=== PATIENT | female | born 1965 | race Caucasian/White ===

== ENCOUNTER → 2017-04-24 | Outpatient (CLI) | payer OTHER ==
--- NOTE | 2017-04-24 12:22 | REP ---
TWO-VIEW CHEST: REASON: Bronchitis. COMPARISON: None. FINDINGS: The superior mediastinal structures are midline. The cardiac silhouette is unremarkable in size, shape, and position. The diaphragmatic surfaces of the lungs are regular, and the costophrenic angles are clear. The pulmonary thompson are clear. The imaged osseous structures are intact. IMPRESSION: There is no acute cardiopulmonary disease. Signed by Brandyn English DO 04/24/2017 01:42 P
== END ==
LOC: M WUC 09:26
PROVIDERS: ATTEND Physician Assistant
DX: J20.9 Acute bronchitis, unspecified (principal)

== ENCOUNTER → 2018-03-31 | Outpatient (REF) | payer OTHER | LOC: M LAB REF 10:11 | DX: N39.0 Urinary tract infection, site not specified (principal) ==

== ENCOUNTER → 2019-01-19 | Outpatient (REF) | payer OTHER | LOC: M LAB REF 19:20 | PROVIDERS: ATTEND Physician Assistant | DX: N39.0 Urinary tract infection, site not specified (principal) ==

== ENCOUNTER → 2019-04-07 | Outpatient (CLI) | payer OTHER ==
[2019-04-07 13:24] LABS: BASO # 0.1 10^3/uL (0.0-0.2); EOS # 0.1 10^3/uL (0.0-0.50); EOS % 1.6 % (0.0-3.0); HEMOGLOBIN 13.7 g/dl (12.0-15.5); LYMPH # 2.2 10^3/uL (1.5-4.5); LYMPH % 32.9 % (24.0-44.0); MEAN CORPUSCULAR HEMOGLOBIN 28.8 pg (27.0-33.0); MEAN CORPUSCULAR HGB CONC 32.6 g/dl (32.0-36.5); MEAN CORPUSCULAR VOLUME 88.4 fl (80.0-96.0); MONO # 0.6 10^3/uL (0.0-0.8); MONO % 9.1 % (0.0-5.0); NEUTROPHILS # 3.7 10^3/uL (1.8-7.7); NEUTROPHILS % 55.1 % (36.0-66.0); PLATELET COUNT, AUTOMATED 202 10^3/uL (150-450); RED BLOOD COUNT 4.75 10^6/uL (4.00-5.40); WHITE BLOOD COUNT 6.8 10^3/uL (4.0-10.0)
[2019-04-07 13:34] LABS: ALBUMIN 3.8 GM/DL (3.2-5.2); ALT/SGPT 22 U/L (12-78); BILIRUBIN,TOTAL 0.4 MG/DL (0.2-1.0); BLOOD UREA NITROGEN 17 MG/DL (7-18); CALCIUM LEVEL 9.6 MG/DL (8.5-10.1); CARBON DIOXIDE LEVEL 30 MEQ/L (21-32); CHLORIDE LEVEL 106 MEQ/L (98-107); CREATININE FOR GFR 0.82 MG/DL (0.55-1.30); GLOMERULAR FILTRATION RATE > 60.0 (>51); GLUCOSE, FASTING 88 MG/DL (70-100); SODIUM LEVEL 141 MEQ/L (136-145); TOTAL PROTEIN 6.8 GM/DL (6.4-8.2)
[2019-04-09 00:06] LABS: EBV AB TO NUCLEAR ANTIGEN >600.0 U/mL (0.0-17.9); EBV VIRAL CAPSID AG IgM <36.0 U/mL (0.0-35.9)
== END ==
LOC: M WUC 09:05
PROVIDERS: ATTEND Physician Assistant
DX: B00.2 Herpesviral gingivostomatitis and pharyngotonsillitis (principal)

== ENCOUNTER 2019-05-08 13:50 | Emergency (ER) | payer OTHER ==
[~2019-05-08] VITALS: Ht 154.9 cm; Wt 51.4 kg
[2019-05-08] MEDS ORDERED: NS 1,000 ML IV ONE (14:30)
[2019-05-08 14:44] LABS: BASO # 0.1 10^3/uL (0.0-0.2); BASO % 1.2 % (0.0-1.0); EOS # 0.1 10^3/uL (0.0-0.50); EOS % 2.1 % (0.0-3.0); HEMATOCRIT 42.2 % (36.0-47.0); HEMOGLOBIN 14.2 g/dl (12.0-15.5); LYMPH # 2.5 10^3/uL (1.5-4.5); LYMPH % 37.9 % (24.0-44.0); MEAN CORPUSCULAR HEMOGLOBIN 29.4 pg (27.0-33.0); MEAN CORPUSCULAR HGB CONC 33.6 g/dl (32.0-36.5); MEAN CORPUSCULAR VOLUME 87.4 fl (80.0-96.0); MONO # 0.6 10^3/uL (0.0-0.8); MONO % 9.3 % (0.0-5.0); NEUTROPHILS # 3.3 10^3/uL (1.8-7.7); NEUTROPHILS % 49.2 % (36.0-66.0); PLATELET COUNT, AUTOMATED 269 10^3/uL (150-450); RED BLOOD COUNT 4.83 10^6/uL (4.00-5.40); WHITE BLOOD COUNT 6.7 10^3/uL (4.0-10.0)
[2019-05-08] MEDS ORDERED: KETOROLAC 30 MG/ML VIAL (J1885) IV ONE (14:45)
[2019-05-08] MEDS ORDERED: ISOVUE-370 76% 100ML VIAL (Q9967) As Ordered ONE (14:51)
[2019-05-08 15:09] LABS: ALBUMIN 4.2 GM/DL (3.2-5.2); ALT/SGPT 19 U/L (12-78); BILIRUBIN,DIRECT < 0.1 MG/DL (0.0-0.2); BILIRUBIN,TOTAL 0.3 MG/DL (0.2-1.0); LIPASE 163 U/L (73-393); TOTAL PROTEIN 7.6 GM/DL (6.4-8.2)
--- NOTE | 2019-05-08 15:22 | REP ---
Clinical: Right lower quadrant pain. Technique: Axial contrast enhanced images from the lung bases to the pubic symphysis using 100 ml Isovue 370 intravenous contrast material with coronal and sagittal re-formations. Comparison: 06/18/2005 Findings: Lung bases are clear. Liver, spleen, pancreas, gallbladder, bilateral adrenal glands and kidneys are normal. The enteric system demonstrates mild fecal stasis without obstruction or obvious acute inflammatory process. Crowding in the right lower quadrant limits evaluation of the appendix, but no secondary signs of appendicitis are appreciated. No inflammatory stranding. No right lower quadrant fluid. Evaluation of the pelvis demonstrates normal bladder and evidence for prior hysterectomy. No ascites. No free air. No adenopathy. Abdominal aorta without aneurysm or dissection. Musculoskeletal structures demonstrate degenerative changes without focal osseous abnormality. Impression: Mild fecal stasis. No further acute abdominopelvic pathology appreciated. No ascites, focal inflammatory stranding, or adenopathy. Electronically Signed by Mason Cheung MD 05/08/2019 03:14 P
[2019-05-08] MEDS ORDERED: GI COCKTAIL 50ML BTL(HYOSCYAMINE/MAALOX/LIDOCAINE VISCOUS)(1:3:1) PO ONE (16:00)
[2019-05-08] MEDS ORDERED: MORPHINE 4 MG/ML 1ML VIAL/SYRINGE (J2270) IV ONE (16:30)
[2019-05-08] MEDS ORDERED: ONDANSETRON 4MG/2ML VIAL (J2405) IV ONE (16:30)
--- NOTE | 2019-05-08 16:37 | REP ---
Clinical: Nephrolithiasis. Flank pain. Technique: Real time mosley scale ultrasound examination using curved array transducer. Findings: Bilateral kidneys are normal in contour, size, echogenicity, and reniform shape without hydronephrosis, nephrolithiasis, cystic or renal mass lesion. No perinephric fluid collection. Right kidney measures 9.3 x 3.5 x 3.5 cm. Left kidney measures 10.4 x 4.7 x 6.0 cm. Bladder is normal. Impression: Normal renal ultrasound. No hydronephrosis. No nephrolithiasis. Electronically Signed by Mason Cheung MD 05/08/2019 04:28 P
[2019-05-08 17:12] LABS: CK-MB VALUE MASS 2.2 NG/ML (<3.6); CPK CREATINE PHOSPHOKINASE 120 U/L (26-192); MB/CK RELATIVE INDEX 1.83 (< OR =4); TROPONIN I < 0.02 NG/ML (< 0.10)
[2019-05-08] MEDS ORDERED: PRIL20TA2 PO (17:24)
[2019-05-08 18:01] VITALS: BP 157/71
--- NOTE | 2019-05-09 16:38 | ECGEPIP ---
[facility] [place] - ED Test Date: 2019-05-08 Pat Name: ANGEL RG Department: Room: - Gender: Female Database Technician: reji : 1965 Requested By: LAKEISHA Carroll PA-C Order Number: [id number] Reading MD: Jose Elias Sutton Measurements Intervals [place] Rate: 72 P: 56 AL: 128 QRS: 67 QRSD: 94 T: 58 QT: 362 QTc: 397 Interpretive Statements SINUS RHYTHM INCOMPLETE RIGHT BUNDLE BRANCH BLOCK Comparison tracing not on file Electronically Signed on 05-09-2019 16:38:30 EDT by Jose Elias Sutton
== END 2019-05-08 17:30 | disposition home or self-care (01) ==
LOC: M ED 14:55
DX: R31.9 Hematuria, unspecified (principal); R10.84 Generalized abdominal pain; I45.19 Other right bundle-branch block; E28.2 Polycystic ovarian syndrome; N80.9 Endometriosis, unspecified; Z87.440 Personal history of urinary (tract) infections; T88.3XXA Malignant hyperthermia due to anesthesia, initial encounter; Z72.0 Tobacco use; Z88.0 Allergy status to penicillin; Z88.2 Allergy status to sulfonamides
CPT/HCPCS: 74177; 76775; 80047; 80076; 81001; 82550; 82553; 83605; 83690; 84484; 85025; 93005; 96374; 96375; 99284; J1885; J2270; J2405; Q9967

== ENCOUNTER → 2019-05-15 | Outpatient (CLI) | payer OTHER ==
[~2019-05-15] MED LIST: ACET-897 PO; ALEV220T22 PO; BACITAB PO; CLEO150C PO; CLIN150C14 PO; ESTR1TAB PO; MOXI400T11 PO; NAPR250T4 PO; PERI0.126 MT; PERI0.126 PO; PRIL20TA2 PO; TRAM50TA2 PO
--- NOTE | 2019-05-15 12:30 | REP ---
T-spine series: Three views. History: Muscle strain. Findings: Thoracic vertebral body heights are preserved. Alignment is normal. There is minimal discogenic spurring in the mid thoracic levels. Pedicles and posterior elements are intact. No paravertebral soft-tissue mass is seen. No fracture or collapse noted. There is a minimal upper thoracic levoconvex curve. Impression: No acute bony abnormality. Electronically Signed by Darrell Leavitt MD 05/15/2019 12:21 P
--- NOTE | 2019-05-15 12:34 | REP ---
Abdominal series: Three views. History: Muscle strain. Comparison study: April 24, 2017. Findings: Upright chest radiograph is unremarkable. There is no evidence of infiltrate or free subdiaphragmatic air. Supine and erect views of the abdomen demonstrate a normal bowel gas pattern. There is no evidence of free air, obstruction, mass or pathologic calcification. There are phleboliths in the true pelvis. No significant bony abnormality is seen. Impression: Unremarkable abdominal series. Electronically Signed by Darrell Leavitt MD 05/15/2019 02:36 P
[2019-05-15 18:31] LABS: C REACTIVE PROTEIN QUANTITATIV < 0.30 MG/DL (0.00-0.30)
[2019-05-17 14:07] LABS: ANTINUCLEAR ANTIBODIES DIRECT Negative (Negative); TISSUE TRANSGLUTAMINASE IgA <2 U/mL (0-3)
== END ==
LOC: M WUC 11:59
PROVIDERS: ATTEND Physician Assistant
DX: R10.84 Generalized abdominal pain (principal); S29.012A Strain of muscle and tendon of back wall of thorax, initial encounter; X58.XXXA Exposure to other specified factors, initial encounter; Y92.89 Other specified places as the place of occurrence of the external cause

== ENCOUNTER 2019-06-14 05:51 | Day surgery (SDC) | payer OTHER ==
[~2019-06-14] VITALS: Ht 154.9 cm; Wt 49.0 kg
[~2019-06-14 05:51] MED LIST changes: -ACET-897 PO; -ALEV220T22 PO; -BACITAB PO; -CLEO150C PO; -CLIN150C14 PO; -MOXI400T11 PO; -PERI0.126 MT; -PERI0.126 PO; -TRAM50TA2 PO
[2019-06-14] MEDS ORDERED: LevoFLOXacin IV 500 MG in APPROPRIATE DILUENT 1 EA IV ONE (06:00)
[2019-06-14] MEDS ORDERED: LR 1,000 ML IV ONE (06:00)
[2019-06-14] MEDS ORDERED: GLUCAGON FOR INJ 1 MG VIAL (J1610) As Ordered ONE (06:52)
[2019-06-14] MEDS ORDERED: BUPIVACAINE/EPIN 0.25% 30 ML VIAL As Ordered ONE (06:52)
[2019-06-14] MEDS ORDERED: CONRAY-60 60% 50ML VIAL (Q9961) As Ordered ONE (06:52)
[2019-06-14] MEDS ORDERED: fentaNYL 250 MCG/5 ML INJECTION (J3010) As Ordered ONE (07:07)
[2019-06-14] MEDS ORDERED: PROPOFOL 500 MG/50 ML VIAL As Ordered ONE (07:07)
[2019-06-14] MEDS ORDERED: MIDAZOLAM INJ 2 MG/2 ML VIAL (J2250) As Ordered ONE (07:07)
[2019-06-14] MEDS ORDERED: PROPOFOL 200 MG/20 ML VIAL As Ordered ONE (07:13)
[2019-06-14] MEDS ORDERED: dexameTHASONE 4 MG/ML 1ML VIAL (J1100) As Ordered ONE (07:13)
[2019-06-14] MEDS ORDERED: ONDANSETRON 4MG/2ML VIAL (J2405) As Ordered ONE (07:13)
[2019-06-14] MEDS ORDERED: LIDOCAINE 2% INJ 100 MG/5 ML SDV (FOR ANES.) As Ordered ONE (07:13)
[2019-06-14] MEDS ORDERED: ROCURONIUM BROMIDE 50 MG/5 ML VIAL As Ordered ONE (07:16)
[2019-06-14] MEDS ORDERED: SUGAMMADEX SODIUM 500 MG/5 ML VIAL (BRIDION) As Ordered ONE (08:05)
[2019-06-14] MEDS ORDERED: ePHEDrine SULFATE 25 MG/5 ML(5MG/ML) SYRINGE As Ordered ONE (08:05)
[2019-06-14] MEDS ORDERED: ACETAMINOPHEN 1000MG 100ML IV BTL (OFIRMEV) (J0131 PER 10MG) As Ordered ONE (08:06)
[2019-06-14] MEDS ORDERED: KETOROLAC 60 MG/2 ML VIAL (J1885) As Ordered ONE (08:06)
--- NOTE | 2019-06-14 08:47 | RO ---
DATE OF PROCEDURE: 06/14/2019 PREOPERATIVE DIAGNOSIS: Acute cholecystitis. POSTOPERATIVE DIAGNOSIS: Acute cholecystitis. PROCEDURE: Laparoscopic cholecystectomy. SURGEON: Barry Delvalle Jr., MD MACHINE CEMENTER: ANESTHESIA: General endotracheal anesthesia. ESTIMATED BLOOD LOSS: Minimal. BRIEF PROCEDURE SUMMARY: The patient was brought to the operating room, was given general anesthesia. After adequate anesthesia and preoperative antibiotics were given the patient was prepped and draped in the usual sterile fashion. Next, a supraumbilical incision was made with skin knife. Blunt dissection was carried down to fascia. Fascia was entered with a Veress needle, insufflated to 15 mm of pressure. A dilating 10 mm trocar was placed at this time and under direct visualization an epigastric and two lateral trocars were placed. The gallbladder was seen, grasped and retracted superiorly. Numerous adhesions of the gallbladder to the omentum as well as to the duodenum were taken down with hook cautery and then the neck of the gallbladder was cleared of the peritoneum using the hook cautery laterally as well as medially. the cystic artery was well visualized, clipped proximally and distally, and transected. The cystic duct was well visualized as well, tapered nicely from the neck the gallbladder down to the cystic duct and was clipped at the junction of the neck of the gallbladder cystic duct junction. The common bile duct could be seen medial. Next, the gallbladder was taken from the gallbladder bed using electrocautery, placed in EndoCatch bag and brought out through the umbilicus. The right upper quadrant was copiously irrigated until clear and all trocars removed under direct visualization. #0 Vicryl was used close fascia at the umbilicus and all incisions were closed with #4-0 Vicryl. Steri-Strips and a dry sterile dressing was applied. The patient was awakened, extubated, brought to the recovery room awake, alert and hemodynamically stable. Sponge and needle counts were correct times two.
[2019-06-14] MEDS ORDERED: ONDANSETRON 4MG/2ML VIAL (J2405) IV PRN (09:15)
[2019-06-14] MEDS ORDERED: fentaNYL 100 MCG/2 ML INJECTION (J3010) IV PRN (09:15)
[2019-06-14] MEDS ORDERED: HYDROMORPHONE HCL 0.5 MG/ 0.5 ML SYRINGE (J1170 PER 1) IV PRN (09:15)
[2019-06-14] MEDS ORDERED: LR 1,000 ML IV SCH ×2 (09:15→10:16)
[2019-06-14] MEDS ORDERED: PROMETHAZINE INJ 25 MG/ML VIAL (J2550) IV PRN (09:15)
[2019-06-14] MEDS ORDERED: traMADol 50 MG TAB PO PRN (09:30)
[2019-06-14 10:00] VITALS: BP 116/56
== END 2019-06-14 10:20 | disposition home or self-care (01) ==
LOC: M SDC 05:51
PROVIDERS: ATTEND Surgery
DX: K81.9 Cholecystitis, unspecified (principal); K21.9 Gastro-esophageal reflux disease without esophagitis; F17.210 Nicotine dependence, cigarettes, uncomplicated; Z79.899 Other long term (current) drug therapy; Z88.2 Allergy status to sulfonamides; Z88.0 Allergy status to penicillin; Z88.8 Allergy status to other drugs, medicaments and biological substances
CPT/HCPCS: 47562; 88304; J0131; J1100; J1885; J1956; J2250; J2405; J3010

== ENCOUNTER 2019-08-13 09:53 | Inpatient (IN) | payer OTHER ==
[2019-08-13] VITALS (7 sets, daily range): BP systolic 97–145; BP diastolic 53–82
[~2019-08-13] VITALS: Ht 154.9 cm; Wt 48.6 kg
[2019-08-13] MEDS ORDERED: TRAM50TA2 PO (10:22)
[2019-08-13 10:58] LABS: BASO # 0.1 10^3/uL (0.0-0.2); BASO % 0.4 % (0.0-1.0); EOS # 0.1 10^3/uL (0.0-0.5); EOS % 0.7 % (0.0-3.0); HEMATOCRIT 40.2 % (36.0-47.0); HEMOGLOBIN 13.3 g/dl (12.0-15.5); LYMPH # 1.9 10^3/uL (1.5-5.0); LYMPH % 13.9 % (24.0-44.0); MEAN CORPUSCULAR HEMOGLOBIN 28.8 pg (27.0-33.0); MEAN CORPUSCULAR HGB CONC 33.1 g/dl (32.0-36.5); MONO # 1.1 10^3/uL (0.0-0.8); MONO % 8.4 % (0.0-5.0); NEUTROPHILS # 10.3 10^3/uL (1.5-8.5); NEUTROPHILS % 76.2 % (36.0-66.0); PLATELET COUNT, AUTOMATED 252 10^3/uL (150-450); RED BLOOD COUNT 4.62 10^6/uL (4.00-5.40); WHITE BLOOD COUNT 13.5 10^3/uL (4.0-10.0)
[2019-08-13 11:18] LABS: ERYTHROCYTE SEDIMENTATION RATE 25 mm/hr (0-30)
[2019-08-13 11:20] LABS: BLOOD UREA NITROGEN 9 MG/DL (7-18); C REACTIVE PROTEIN QUANTITATIV 8.25 MG/DL (0.00-0.30); CALCIUM LEVEL 9.1 MG/DL (8.5-10.1); CARBON DIOXIDE LEVEL 27 MEQ/L (21-32); CHLORIDE LEVEL 104 MEQ/L (98-107); CREATININE FOR GFR 0.74 MG/DL (0.55-1.30); GLOMERULAR FILTRATION RATE > 60.0 (>51); GLUCOSE, FASTING 93 MG/DL (70-100); POTASSIUM SERUM 3.9 MEQ/L (3.5-5.1); SODIUM LEVEL 137 MEQ/L (136-145)
[2019-08-13] MEDS ORDERED: KETOROLAC 30 MG/ML VIAL (J1885) IV ONE (11:30)
[2019-08-13] MEDS ORDERED: ISOVUE-370 76% 100ML VIAL (Q9967) As Ordered ONE (11:32)
--- NOTE | 2019-08-13 12:08 | REPVR ---
PROCEDURE INFORMATION: Exam: CT Neck With Contrast Exam date and time: 08/13/2019 11:33 AM Clinical history: 54 years old, female; Other: L neck erythema, edema; Additional info: L neck erythema, edema, ttp TECHNIQUE: Imaging protocol: Computed tomography images of the neck with intravenous contrast. Radiation optimization: All CT scans at this facility use at least one of these dose optimization techniques: automated exposure control; mA and/or kV adjustment per patient size (includes targeted exams where dose is matched to clinical indication); or iterative reconstruction. Contrast material: ISOVUE 370; Contrast volume: 75 ml; Contrast route: IV; COMPARISON: No relevant prior studies available. FINDINGS: Inflammatory change in the left submandibular region and superior neck, with cellulitis centered along the inferior aspect of the mandibular body with adjacent myositis causing thickening of the platysma, and a 2.7 x 1.6 x 1.9 cm fluid collection with mild peripheral enhancement along the inferior and medial aspect of the left mandibular body, superficial to the mylohyoid, immediately abutting the enlarged, inflamed submandibular gland. This likely superior extension of inflammation within the pit furnace operator space, with mild pit furnace operator muscular edema, and mild inflammation within the left parapharyngeal fat. No retropharyngeal or prevertebral effusion. There is a periapical erosion around the roots of the left posterior mandibular molar, with thinning of the inner table of the mandibular cortex. The imaged brain and orbits are unremarkable. The nasal cavity, nasopharynx, oral cavity, oropharynx, hypopharynx, and larynx are otherwise unremarkable. The major cervical vasculature appears patent. Mild emphysema in the imaged upper lungs, with apical scarring. No destructive osseous lesions. IMPRESSION: Left submandibular region inflammation with cellulitis, myositis, and a large area of phlegmon/early abscess formation along the inferior aspect of the mandibular body with adjacent submandibular sialadenitis. This is likely odontogenic in origin, with a periapical erosion about the roots of the left posterior mandibular molar eroding through the mandibular cortex. Electronically signed by: Sanjeev Cordova On 08/13/2019 12:08:11 PM
[2019-08-13] MEDS ORDERED: NS 1,000 ML IV STA (13:10)
[2019-08-13] MEDS ORDERED: ESTR1TAB PO (13:23)
[2019-08-13] MEDS ORDERED: ACET-897 PO (13:23)
[2019-08-13] MEDS ORDERED: ALEV220T22 PO (13:23)
[2019-08-13] MEDS ORDERED: CLINDAMYCIN 600 MG in IV 1 EA IV ONE (13:30)
[2019-08-13] MEDS ORDERED: MORPHINE 4 MG/ML 1ML VIAL/SYRINGE (J2270) IV PRN (14:15)
[2019-08-13] MEDS ORDERED: MAALOX 30 ML SUSP *UDC PO PRN (14:30)
[2019-08-13] MEDS ORDERED: NICOTINE 14 MG/24 HR TRANSDERMAL TD ONE (14:30)
[2019-08-13] MEDS ORDERED: MOM 30ML SUSPENSION UDC PO PRN (14:30)
[2019-08-13] MEDS ORDERED: ESTRADIOL 1 MG TAB PO PRN (15:00)
--- NOTE | 2019-08-13 15:01 | HPEPDOC ---
[facility] Medical History & Physical Date of Admission Aug 13, 2019 Date of Service: Aug 13, 2019 Primary Care Physician: GAL CASTELLON DO Attending Physician: MOR FORD MD History and Physical CHIEF COMPLAINT: Left jaw pain HISTORY OF PRESENT ILLNESS: Patient is a 54-year-old white female with a benign past medical history, who presented to emergency department on 08/13/19 with a chief complaint of left lower jaw pain. Patient states that her pain began approximately 1 week ago after feeling in her left posterior molar became loose. Patient states that her pain continued to persist over the coming days and ultimately led to her to present to urgent care on 08/11/19. While at urgent care, patient was diagnosed with a perioral infection and given by mouth clindamycin 200 mg 3 times a day. Patient states that despite oral antibiotic therapy, her pain and discomfort continued to persist. The night prior to presentation, 08/12/19, patient reported experiencing elevated temperature and rigors. Given this, and increasing discomfort, patient presented to the emergency department for further evaluation and management. Upon presentation to the emergency department, patient was found to be afebrile and only slightly hypertensive with blood pressure of 146/64. Pulse of 84, respiratory rate of 16 and oxygen saturation 100% on room air. CBC investigation demonstrated a slight leukocytosis of 13.5, predominantly neutrophils. Chemistry panel revealed normal electrolytes and normal kidney function. CRP slightly elevated at 8.25. CT imaging of the patient's neck with IV contrast which revealed left submandibular inflammation with cellulitis and myositis and a large area of early abscess formation. In light of this finding, ENT was contacted with emergency department was agreeable to see the patient in the hospital. Hospitalist team was contacted to admit the patient for further evaluation and management. PAST MEDICAL HISTORY: No significant past medical history PAST SURGICAL HISTORY: D&C, 3 Hysterectomy Right elbow repair Cholecystectomy SOCIAL HISTORY: Marital status: Single Resides in: Own home with her boyfriend, her son, her boyfriend side and a pet dog. Children:1 son Tobacco use: Patient smokes approximately 1/2-2/3 packs of cigarettes per day. She's been doing so since she was in her late teens. ETOH: Patient denies any recent alcohol use or intoxication. Illicit drug use: Patient denies any illicit drug use including marijuana. IV drug use: Patient denies any IV drug use. Other relevant social factors: Patient does have an identical twin sister with whom she is very close. FAMILY HISTORY: Father: Alive, 81 years old, hypertension Mother: Alive, no medical problems Siblings: Identical twin sister, alive Children: Healthy, no medical problems ALLERGIES: Please see below. REVIEW OF SYSTEMS: CONSTITUTIONAL: Patient reports feeling feverish last evening with associated rigors. She states that her temperature was 99.5. F. chose reports difficulty sleeping secondary to pain and discomfort. No recent weight loss. HEENT: Day history of headache, states that her left ear does feel full, no loss of hearing or tinnitus. Patient also reports increased rhinorrhea and sinus pressure particularly on the left maxillary area. She does have difficulty opening her mouth beyond one fingers breath due to pain and pressure. CARDIOVASCULAR: Patient denies any chest pain or pressure RESPIRATORY: Patient denies any recent respiratory illnesses. No difficulty breathing, no recent wheezing or cough. GASTROINTESTINAL: Denies any nausea, vomiting, reflux, abdominal pain, diarrhea or constipation GENITOURINARY: Denies any difficulty with urination including dysuria or frequency. SKIN: Reports left-sided mandibular skin tightness, no recent rashes or bruising. MUSCULOSKELETAL: Patient denies any muscle or joint aches or pains. NEUROLOGICAL: Patient denies any focal neurologic deficits, no numbness tingling or paresthesias in her arms/feet her extremities. HOME MEDICATIONS: Please see below. PHYSICAL EXAMINATION: VITAL SIGNS: Temperature 96.4, pulse 84, respiratory rate 16, blood pressure 146/64 (91), pulse oximetry 100 % on room air. GENERAL APPEARANCE: Patient was interviewed and examined in immediate care. Patient was found to be seated comfortably on her hospital bed. Patient's identical twin sister and mother were at bedside. Patient was alert and oriented in no acute distress. She was able to answer questions appropriately and adequately participate in her care. HEENT: Calvarium atraumatic. Patient does demonstrate moderate amount of submandibular swelling on the left. Tenderness to palpation along the mandibular ramus and angle. Mild tenderness in the left neck. No appreciable lymphadenopathy. Limited examination of the oral cavity does demonstrate fract ured tooth #17. Undiscernible swelling or surrounding erythema. No obvious ulcerations. Mucous membranes are moist. CARDIOVASCULAR: Regular rate and rhythm, normal S1 and S2. No murmurs appreciated LUNGS: Clear to auscultation bilaterally without any noticeable wheezing rales or rhonchi. Regular anterior posterior lung thompson. ABDOMEN: Soft, nontender, nondistended, no rigidity or guarding. No palpable masses or organomegaly. EXTREMITIES: No lower extremity edema/swelling, tenderness bilaterally NEUROLOGICAL: No focal neurologic deficit. Alert and oriented to person place and time PSYCHIATRIC: Mood and affect are appropriate given patient's current medical condition LABORATORY DATA: See below. IMAGING: Head and neck CT (08/13/19): Left submandibular region inflammation with cellulitis, myositis and large area of phlegmon/early abscess formation along the inferior aspect of the mandibular body with adjacent submandibular sialadenitis. This is likely odontogenic in origin with periapical erosion about the roots of the left posterior mandibular molar eroding through the mandibular cortex. MICROBIOLOGY: Venous blood cultures (08/13/19): Pending ASSESSMENT: Patient is a 54-year-old female with a benign past medical history, who presented to the emergency department on 08/13/19 with a chief complaint of left submandibular pain and swelling. Patient appears sick been treated at an urgent care on 08/11/19, diagnosed with perioral infection and given clindamycin 300 mg by mouth 3 times daily. Patient reports that her pain and swelling continued to persist and ultimately led to her hospital presentation. CT imaging of the patient's jaw to demonstrate cellulitis, myositis and early abscess formation submandibular area. Oral surgery was consulted and agreed to see the patient further evaluation and management. Patient admitted to the floor and continued on IV clindamycin. PLAN: #Submandibular cellulitis/abscess Physical exam demonstrates moderate amount of submandibular swelling along the inferior aspect of the mandibular ramus. CT imaging of the area indicates possibility of early abscess formation. CBC performed in the emergency department is positive for slight leukocytosis of 13.5, predominantly neutrophils. Patient remains afebrile and her vitals are stable. Systemic infection not clinically evident. Patient does have quite extensive list of antibiotic allergies. She denies any difficulty taking oral clindamycin the last few days. Continue patient on IV clindamycin 600 mg every 8 hours. Oral surgery has been consulted and we appreciate their assistance with managing this patient. Continued IV antibiotics versus surgical drainage per their discretion. #Nicotine dependence Nicotine patch be provided in addition to smoke cessation material. DVT prophylaxis: Subcutaneous Lovenox 40 mg daily. Vital Signs Vital Signs Date Time Temp Pulse Resp B/P (MAP) Pulse Ox O2 Delivery O2 Flow Rate FiO2 08/13/19 10:18 08/13/19 09:54 96.4 84 16 100 Room Air Laboratory Data Labs 24H Laboratory Tests 2 08/13/19 10:15: Immature Granulocyte % (Auto) 0.4, White Blood Count 13.5H, Red Blood Count 4.62, Hemoglobin 13.3, Hematocrit 40.2, Mean Corpuscular Volume 87.0, Mean Corpuscular Hemoglobin 28.8, Mean Corpuscular Hemoglobin Concent 33.1, Red Cell Distribution Width 13.8, Platelet Count 252, Neutrophils (%) (Auto) 76.2H, Lymphocytes (%) (Auto) 13.9L, Monocytes (%) (Auto) 8.4H, Eosinophils (%) (Auto) 0.7, Basophils (%) (Auto) 0.4, Neutrophils # (Auto) 10.3H, Lymphocytes # (Auto) 1.9, Monocytes # (Auto) 1.1H, Eosinophils # (Auto) 0.1, Basophils # (Auto) 0.1, Nucleated Red Blood Cells % (auto) 0.0, Erythrocyte Sedimentation Rate 25, Anion Gap 6L, Glomerular Filtration Rate > 60.0, Blood Urea Nitrogen 9, Creatinine 0.74, Sodium Level 137, Potassium Level 3.9, Chloride Level 104, Carbon Dioxide Level 27, Calcium Level 9.1, C-Reactive Protein, Quantitative 8.25H CBC/BMP Laboratory Tests 08/13/19 10:15 Red Blood Count 4.62, Mean Corpuscular Volume 87.0, Mean Corpuscular Hemoglobin 28.8, Mean Corpuscular Hemoglobin Concent 33.1, Red Cell Distribution Width 13.8 , Neutrophils (%) (Auto) 76.2 H, Lymphocytes (%) (Auto) 13.9 L, Monocytes (%) (Auto) 8.4 H, Eosinophils (%) (Auto) 0.7, Basophils (%) (Auto) 0.4, Neutrophils # (Auto) 10.3 H, Lymphocytes # (Auto) 1.9, Monocytes # (Auto) 1.1 H, Eosinophils # (Auto) 0.1, Basophils # (Auto) 0.1, Calcium Level 9.1 Microbiology Microbiology 08/13/19 Blood Culture, Received Pending 08/13/19 Blood Culture, Received Pending Home Medications Scheduled Estradiol (Estradiol) 1 Mg Tablet, 1 MG PO DAILY Scheduled PRN Acetaminophen (Tylenol Extra Strength) 500 Mg Tablet, 500 MG PO QID PRN for PAIN Estradiol (Estradiol) 1 Mg Tablet, 1 MG PO DAILY PRN for HOT FLASHES Naproxen Sodium (Aleve) 220 Mg Tablet, 220 MG PO BID PRN for PAIN Tramadol HCl (Tramadol HCl) 50 Mg Tablet, 50 MG PO Q6H PRN for PAIN Allergies Coded Allergies: succinylcholine (Verified Allergy, Severe, family hx MH, 08/13/19) identical twin had MH reaction Penicillins (Verified Allergy, Mild, HIVES, 08/13/19) Sulfa (Sulfonamide Antibiotics) (Verified Allergy, Mild, HIVES, 08/13/19) amoxicillin (Verified Allergy, Mild, HIVES, 08/13/19) clavulanic acid (Verified Allergy, Mild, HIVES, 08/13/19) red dye (Verified Allergy, Unknown, 08/13/19) hives hydrocodone (Verified Adverse Reaction, Unknown, VOMITING, 08/13/19) A-FIB/CHADSVASC A-FIB History Current/History of A-Fib/PAF?: No GME ATTESTATION GME ATTESTATION My faculty preceptor for this patient encounter was physically present during the encounter and was fully available. All aspects of the patient interview, examination, medical decision making process, and medical care plan development were reviewed and approved by the faculty preceptor. The faculty preceptor is aware and concurs with the plan as stated in the body of this note and will attest to such by his/her cosignature. ATTENDING NOTE I, Mor Ford, have independently examined this patient and performed my own physical exam, as well as reviewed the documentation and edited where necessary. I have discussed in detail with the resident / student the findings and plan of treatment as documented by the resident / student and edited their note. I agree with their findings and treatment plan and have edited their documentation. I will continue to follow the patient during this hospital stay. LANDON LOVE DO Aug 13, 2019 15:01 MOR FORD MD Aug 13, 2019 15:54
[2019-08-13] MEDS: CLINDAMYCIN 600 MG in IV 1 EA IV SCH ×2 (15:56→23:12)
[2019-08-13] MEDS: ACETAMINOPHEN TAB 650MG DOSE (2X325MG) PO PRN ×2 (15:56→22:05)
[2019-08-13] MEDS ORDERED: MIDAZOLAM INJ 2 MG/2 ML VIAL (J2250) As Ordered ONE (17:08)
[2019-08-13] MEDS ORDERED: LIDOCAINE 2% INJ 100 MG/5 ML SDV (FOR ANES.) As Ordered ONE (17:09)
[2019-08-13] MEDS ORDERED: ONDANSETRON 4MG/2ML VIAL (J2405) As Ordered ONE ×2 (17:09→19:09)
[2019-08-13] MEDS ORDERED: fentaNYL 100 MCG/2 ML INJECTION (J3010) As Ordered ONE ×2 (17:09→18:20)
[2019-08-13] MEDS ORDERED: PROPOFOL 200 MG/20 ML VIAL As Ordered ONE (17:09)
[2019-08-13] MEDS ORDERED: LIDOCAINE 2% W/ EPINEPHRINE 1.7 ML DENTAL INJ As Ordered ONE (17:20)
[2019-08-13] MEDS ORDERED: ROCURONIUM BROMIDE 50 MG/5 ML VIAL As Ordered ONE (17:28)
[2019-08-13] MEDS ORDERED: PROPOFOL 500 MG/50 ML VIAL As Ordered ONE (17:56)
[2019-08-13] MEDS ORDERED: LIDOCAINE W/EPINEPHRINE 1% 20ML VIAL As Ordered ONE (18:10)
[2019-08-13] MEDS ORDERED: SUGAMMADEX SODIUM 500 MG/5 ML VIAL (BRIDION) As Ordered ONE (18:22)
[2019-08-13] MEDS ORDERED: oxyCODONE 5MG TAB As Ordered ONE (19:08)
[2019-08-13] MEDS ORDERED: LR 1,000 ML IV SCH (19:15)
[2019-08-13] MEDS ORDERED: ONDANSETRON 4MG/2ML VIAL (J2405) IV PRN (19:15)
[2019-08-13] MEDS ORDERED: fentaNYL 100 MCG/2 ML INJECTION (J3010) IV PRN (19:15)
[2019-08-13] MEDS ORDERED: oxyCODONE 5MG TAB PO PRN (19:15)
[2019-08-13] MEDS: ENOXAPARIN 40 MG/0.4 ML SYRINGE (J1650) SC SCH (20:43)
[2019-08-13] MEDS: DOCUSATE SODIUM 100 MG CAP PO SCH (20:44)
[2019-08-13] MEDS: MORPHINE 4 MG/ML 1ML VIAL/SYRINGE (J2270) IV PRN ×2 (20:45→23:13)
[2019-08-14 00:50] VITALS: BP 88/51
[2019-08-14 04:09] VITALS: BP 114/55
[2019-08-14] MEDS: CLINDAMYCIN 600 MG in IV 1 EA IV SCH ×3 (06:35→23:10)
[2019-08-14] MEDS: ACETAMINOPHEN TAB 650MG DOSE (2X325MG) PO PRN ×3 (06:44→18:59)
[2019-08-14 06:47] LABS: HEMATOCRIT 34.7 % (36.0-47.0); HEMOGLOBIN 11.6 g/dl (12.0-15.5); MEAN CORPUSCULAR HEMOGLOBIN 28.9 pg (27.0-33.0); MEAN CORPUSCULAR HGB CONC 33.4 g/dl (32.0-36.5); MEAN CORPUSCULAR VOLUME 86.3 fl (80.0-96.0); PLATELET COUNT, AUTOMATED 205 10^3/uL (150-450); RED BLOOD COUNT 4.02 10^6/uL (4.00-5.40)
[2019-08-14 07:01] LABS: BLOOD UREA NITROGEN 13 MG/DL (7-18); CALCIUM LEVEL 8.6 MG/DL (8.5-10.1); CARBON DIOXIDE LEVEL 25 MEQ/L (21-32); CHLORIDE LEVEL 107 MEQ/L (98-107); CREATININE FOR GFR 0.77 MG/DL (0.55-1.30); GLOMERULAR FILTRATION RATE > 60.0 (>51); GLUCOSE, FASTING 129 MG/DL (70-100); POTASSIUM SERUM 4.5 MEQ/L (3.5-5.1); SODIUM LEVEL 137 MEQ/L (136-145)
[2019-08-14] MEDS: ESTRADIOL 1 MG TAB PO SCH (08:08)
[2019-08-14] MEDS: DOCUSATE SODIUM 100 MG CAP PO SCH ×2 (08:08→21:04)
[2019-08-14] MEDS: NICOTINE 14 MG/24 HR TRANSDERMAL TD SCH (08:09)
[2019-08-14 08:15] VITALS: BP 106/56
--- NOTE | 2019-08-14 11:03 | IPNPDOC ---
Text Note Date of Service The patient was seen on 08/14/19. NOTE Subjective: Patient is a 54-year-old female with no significant past medical history who presents to the emergency room on 08/13/2019 with complaints of left lower drawer pain and swelling. Patient reported that her left-sided molar had become loose approximately one week ago and presented to urgent care on 08/11/2019 for further evaluation. She was prescribed clindamycin orally and discharged home. Patient's pain was not controlled and she continued to experience worsening pain and swelling. In the emergency room, patient received imaging that was consistent with possible abscess. Patient was admitted to the hospitalist service for further evaluation and treatment and oral surgery was called on consultation. On 08/13/2019 evening patient was taken to or for intervention with oral surgery. Patient was seen and examined at the bedside. Currently, patient reports that her pain has improved. Her swelling has subsided. She still having difficulty with foods. She denies any nausea, vomiting. Patient, chest pain, shortness breath, abdominal pain, discomfort with urination or diarrhea. Objective: Vitals (See below) General: Lying in bed, no acute distress, comfortable, AAOx3 HEENT: There is a drainage tube that is noted within the oral cavity CVS: RRR, +S1S2 Lungs: Fair air entry b/l, -w/r/r Abdomen: Soft, ND, NT Extremities: - Edema, - Calf tenderness Assessment and plan: Submandibular cellulitis/abscess - Presented to the emergency room after having worsening swelling of her left jaw - Patient remains hemodynamically stable and afebrile - Leukocytosis has improved; CRP is noted to have trended up - Blood cultures/wound cultures remain pending - CT Neck 08/13: Left submandibular region inflammation with cellulitis, myositis, and a large area of phlegmon/early abscess formation along the inferior aspect of the mandibular body with adjacent submandibular sialadenitis. This is likely odontogenic in origin, with a periapical erosion about the roots of the left posterior mandibular molar eroding through the mandibular cortex. - Patient was taken to or on 08/13/2019 by oral surgery, Dr. Ramey; appreciate their input - c/w Clindamycin IV (Day #2) Normocytic anemia - Likely 2/2 dilutional etiology - No evidence of acute bleeding - Will continue to monitor Nicotine dependence - Advised smoking cessation - c/w Nicotine patch DVT prophylaxis - c/w Lovenox Disposition: - Awaiting culture results - Drain to remain in place until output subsides VS,Joyce, I+O VS, Joyce, I+O Laboratory Tests 08/14/19 06:29 Red Blood Count 4.02, Mean Corpuscular Volume 86.3, Mean Corpuscular Hemoglobin 28.9, Mean Corpuscular Hemoglobin Concent 33.4, Red Cell Distribution Width 13.7, Calcium Level 8.6 Vital Signs Date Time Temp Pulse Resp B/P (MAP) Pulse Ox O2 Delivery O2 Flow Rate FiO2 08/14/19 08:15 97.9 64 16 106/56 (73) 97 08/13/19 15:19 Room Air I&O- Last 24 Hours up to 6 AM 08/14/19 05:59 Intake Total 1735 ml Output Total 680 ml Balance 1055 ml DAVID CHEN MD Aug 14, 2019 11:03
[2019-08-14] MEDS: MORPHINE 4 MG/ML 1ML VIAL/SYRINGE (J2270) IV PRN ×2 (12:39→20:09)
[2019-08-14 12:45] VITALS: BP 114/59
[2019-08-14 16:00] VITALS: BP 106/54
[2019-08-14 20:00] VITALS: BP 112/56
[2019-08-14] MEDS: ENOXAPARIN 40 MG/0.4 ML SYRINGE (J1650) SC SCH (21:03)
[2019-08-15] MEDS: ACETAMINOPHEN TAB 650MG DOSE (2X325MG) PO PRN ×2 (00:26→06:40)
[2019-08-15 00:30] VITALS: BP 113/53
[2019-08-15 06:24] LABS: HEMATOCRIT 34.3 % (36.0-47.0); HEMOGLOBIN 11.3 g/dl (12.0-15.5); MEAN CORPUSCULAR HEMOGLOBIN 28.7 pg (27.0-33.0); MEAN CORPUSCULAR HGB CONC 32.9 g/dl (32.0-36.5); MEAN CORPUSCULAR VOLUME 87.1 fl (80.0-96.0); PLATELET COUNT, AUTOMATED 235 10^3/uL (150-450); RED BLOOD COUNT 3.94 10^6/uL (4.00-5.40); WHITE BLOOD COUNT 9.7 10^3/uL (4.0-10.0)
[2019-08-15] MEDS: CLINDAMYCIN 600 MG in IV 1 EA IV SCH (06:32)
[2019-08-15 06:47] LABS: BLOOD UREA NITROGEN 12 MG/DL (7-18); CALCIUM LEVEL 8.8 MG/DL (8.5-10.1); CARBON DIOXIDE LEVEL 30 MEQ/L (21-32); CHLORIDE LEVEL 110 MEQ/L (98-107); CREATININE FOR GFR 0.78 MG/DL (0.55-1.30); GLOMERULAR FILTRATION RATE > 60.0 (>51); GLUCOSE, FASTING 86 MG/DL (70-100); POTASSIUM SERUM 4.3 MEQ/L (3.5-5.1); SODIUM LEVEL 141 MEQ/L (136-145)
--- NOTE | 2019-08-15 07:53 | RO ---
DATE OF PROCEDURE: 08/13/2019 PREPROCEDURE DIAGNOSIS: Left facial swelling. POSTPROCEDURE DIAGNOSIS: Left facial swelling. PROCEDURE: 1. Extraction of tooth #18. 2. Incision and drainage of left facial abscess. SURGEON: Dr. Damien Ramey. ENVIRONMENTAL DESIGNER: None ANESTHESIA: General. COMPLICATIONS: None. SPECIMENS: Teeth and culture. DESCRIPTION OF PROCEDURE: 54 year old female that presented to ED with chief complain of pain and swelling on left side of face for the last five days. Upon clinical and radiographic evaluation, patient was found to have a fluid collection on left angle of mandible due to carious/infected tooth #18. All R/B/A were explained to patient. All questions were answered. Informed consent was obtained for extraction of tooth #18 and incision and drainage of left facial abscess. Patient was brought into the operating room by anesthesia and placed in a supine position. All the monitors were placed. Patient was induced and intubated orally with a 7.0 oral tube. Tube placement confirmed using CO2 monitor and positive capnography. Surgeon went to scrub and approach the patient in a sterile fashion. All sterile drapes were placed. Moist vaginal packing used a a throat pack. 5cc of lidocaine 1% with 1/100,000 epinephrine used via left inferior alveolar, lingual and long buccal nerve blocks. Patient tolerated this well. No complications. Using a straight elevator and forceps technique, tooth #18 was extracted. using periosteal elevator and 15 blade, incision and drainage was performed. Copious exudate/purulence was obtained. Cultures taken.Area irrigated with saline and irais drain was secured in area with 3-0 silk. Vaginal packing was removed and patient was extubated when criteria was meet by anesthesia. Patient transferred to recovery in stable condition. Damien CHAMPAGNE
[2019-08-15 08:00] VITALS: BP 109/55
[2019-08-15] MEDS: MORPHINE 4 MG/ML 1ML VIAL/SYRINGE (J2270) IV PRN (09:33)
[2019-08-15] MEDS: ESTRADIOL 1 MG TAB PO SCH (09:34)
[2019-08-15] MEDS: NICOTINE 14 MG/24 HR TRANSDERMAL TD SCH (09:34)
[2019-08-15] MEDS: DOCUSATE SODIUM 100 MG CAP PO SCH (09:34)
[2019-08-15] MEDS ORDERED: CLEO150C PO (09:56)
[2019-08-15] MEDS ORDERED: PERI0.126 PO (09:56)
--- NOTE | 2019-08-15 10:29 | DS.PDOC ---
Discharge Summary General Date of Admission Aug 13, 2019 at 14:14 Date of Discharge 08/15/2019 Primary Care Physician: GAL CASTELLON DO Attending Physician: MOR FORD MD Specialist/Consultants Involve: RYAN WONG DMD Discharge Summary PROCEDURES PERFORMED DURING STAY: Extraction of tooth #18 Incision and drainage of left facial abscess ADMITTING DIAGNOSES: Submandibular cellulitis/abscess Nicotine dependence DISCHARGE DIAGNOSES: Submandibular cellulitis/abscess Normocytic Anemia Nicotine dependence COMPLICATIONS/CHIEF COMPLAINT: Abscess, Jaw. HISTORY OF PRESENT ILLNESS: Patient is a 54-year-old white female with a benign past medical history, who presented to emergency department on 08/13/19 with a chief complaint of left lower jaw pain. Patient stated that her pain began approximately 1 week ago after feeling in her left posterior molar became loose. Patient stated that her pain continued to persist over the coming days and ultimately led to her to present to urgent care on 08/11/19. While at urgent care, patient was diagnosed with a perioral infection and given by mouth clindamycin 200 mg 3 times a day. Patient states that despite oral antibiotic therapy, her pain and discomfort continued to persist. The night prior to presentation, 08/12/19, patient reported experiencing elevated temperature and rigors. Given this, and increasing discomfort, patient presented to the emergency department for further evaluation and management. Upon presentation to the emergency department, patient was found to be afebrile and only slightly hypertensive with blood pressure of 146/64. Pulse of 84, respiratory rate of 16 and oxygen saturation 100% on room air. CBC investigation demonstrated a slight leukocytosis of 13.5, predominantly neutrophils. Chemistry panel revealed normal electrolytes and normal kidney function. CRP slightly elevated at 8.25. CT imaging of the patient's neck with IV contrast which revealed left submandibular inflammation with cellulitis and myositis and a la rge area of early abscess formation. In light of this finding, ENT was contacted with emergency department was agreeable to see the patient in the hospital. Hospitalist team was contacted to admit the patient for further evaluation and management HOSPITAL COURSE: Patient was admitted to the floor, continued on IV clindamycin, and seen later in the afternoon by Dr. Ramey, oral surgeon. Patient was taken to surgery for intervention the evening of 08/13/19. Extraction of tooth #18 was performed as well as drainage of the patient's abscess. A drain was placed and culture was taken. Persistent rapid overnight. On 08/14/19, the patient reported improvement in both her swelling and pain. She continued to have difficulty with soft foods. No nausea vomiting chest pain shows of breath abdominal pain or discomfort. Subsequently, patient denied any increasing frequency of stools. Patient was seen by neurosurgery on the morning of 08/15/19, drain was removed, and cleared for discharge. Patient is medically stable. Plan to continue twice daily mouthwashes and continue oral clindamycin. Follow-up scheduled with oral surgery in 7-10 days and PCP in 7-10 days. Discharge was discussed with the patient was in agreement with plan. DISCHARGE MEDICATIONS: Please see below. ALLERGIES: Please see below. PHYSICAL EXAMINATION ON DISCHARGE: VITAL SIGNS: Please see below. GENERAL: Patient was interviewed and examined in her hospital room. Patient was found to be seated upright in bed attempted deep breakfast. She was in no acute distress. She was alert and oriented 3 able to answer question appropriately nightly participate in her care. HEENT: Normocephalic, atraumatic, EOMI, moderate swelling patient's lower right mandible. Mucous membranes are moist, drain noted in the lower left cheek with very minimal drainage. Mild swelling and erythema noted along the buccal surface. NECK: Improved swelling and tenderness along the left sub-mandibular border. No neck swelling appreciated. Trachea is midline without any obvious lymphadenopathy. CARDIOVASCULAR EXAMINATION: Regular rate and rhythm, normal S1 and S2 without auscultation and murmur RESPIRATORY EXAMINATION: Clear to auscultation bilaterally, no wheezes rales or rhonchi noted ABDOMINAL EXAMINATION: Soft, nontender, nondistended, no rigidity or guarding noted. No obvious organomegaly. EXTREMITIES: Patient still to move her extremities equally and bilaterally. No lower extremity edema or swelling. Posterior tibial pulses are 2+ bilaterally. No calf tenderness. NEUROLOGICAL EXAMINATION: Patient is alert and oriented 3, able to move all extremities equally and bilaterally, no focal neurologic deficit. PSYCHIATRIC EXAMINATION: Mood and affect is appropriate given patient's current medical condition. LABORATORY DATA: Please see below. IMAGING: Head and neck CT (08/13/19): Left submandibular region inflammation with cellulitis, myositis and large area of phlegmon/early abscess formation along the inferior aspect of the mandibular body with adjacent submandibular sial adenitis. This is likely odontogenic in origin with periapical erosion about the roots of the left posterior mandibular molar eroding through the mandibular cortex PROGNOSIS: Good ACTIVITY: As tolerated DIET: Soft diet, advance as tolerated. DISPOSITION: Home with self-care DISCHARGE INSTRUCTIONS: This continued to take oral antibiotic for 10 days. Continue with oral rinses twice daily until you see Dr. Ramey. Please follow up with Dr. Ramey in 7-10 days. Please follow up with primary care provider in 7-10 days. She condition worsen, fail to continue to improve or should you experience fevers or chills, please return to the Hospital further evaluation and man agement. Thank you for allowing us to participate in your care. DISCHARGE CONDITION: Stable TIME SPENT ON DISCHARGE: 35 minutes. Vital Signs/I&Os Vital Signs Date Time Temp Pulse Resp B/P (MAP) Pulse Ox O2 Delivery O2 Flow Rate FiO2 08/15/19 09:33 18 08/15/19 08:00 98.7 66 109/55 (73) 99 08/13/19 15:19 Room Air I&O- Last 24 Hours up to 6 AM 08/15/19 06:00 Intake Total 1300 ml Output Total 1400 ml Balance -100 ml Laboratory Data Labs 24H Laboratory Tests 2 08/15/19 06:12: Nucleated Red Blood Cells % (auto) 0.0, Anion Gap 1L, Glomerular Filtration Rate > 60.0, Blood Urea Nitrogen 12, Creatinine 0.78, Sodium Level 141, Potassium Level 4.3, Chloride Level 110H, Carbon Dioxide Level 30, Calcium Level 8.8, C- Reactive Protein, Quantitative 6.20H CBC/BMP Laboratory Tests 08/15/19 06:12 Red Blood Count 3.94 L, Mean Corpuscular Volume 87.1, Mean Corpuscular Hemoglobin 28.7, Mean Corpuscular Hemoglobin Concent 32.9, Red Cell Distribution Width 13.9, Calcium Level 8.8 Microbiology Microbiology 08/13/19 Gram Stain - Final, Resulted 08/13/19 Abscess Culture, Resulted Pending 08/13/19 Anaerobic Culture, Resulted Pending 08/13/19 Blood Culture - Preliminary, Resulted No growth after 24 hours . All specim... 08/13/19 Blood Culture - Preliminary, Resulted No growth after 24 hours . All specim... Discharge Medications Scheduled Chlorhexidine Gluconate (Peridex) 473 Ml Mouthwash, 15 ML PO BID Clindamycin Hcl (Cleocin HCl) 150 Mg Capsule, 450 MG PO Q8H Estradiol (Estradiol) 1 Mg Tablet, 1 MG PO DAILY, (Reported) Scheduled PRN Acetaminophen (Tylenol Extra Strength) 500 Mg Tablet, 500 MG PO QID PRN for PAIN, (Reported) Estradiol (Estradiol) 1 Mg Tablet, 1 MG PO DAILY PRN for HOT FLASHES, (Reported) Naproxen Sodium (Aleve) 220 Mg Tablet, 220 MG PO BID PRN for PAIN, (Reported) Allergies Coded Allergies: succinylcholine (Verified Allergy, Severe, family hx MH, 08/13/19) identical twin had MH reaction Penicillins (Verified Allergy, Mild, HIVES, 08/13/19) Sulfa (Sulfonamide Antibiotics) (Verified Allergy, Mild, HIVES, 08/13/19) amoxicillin (Verified Allergy, Mild, HIVES, 08/13/19) clavulanic acid (Verified Allergy, Mild, HIVES, 08/13/19) red dye (Verified Allergy, Unknown, 08/13/19) hives hydrocodone (Verified Adverse Reaction, Unknown, VOMITING, 08/13/19) GME ATTESTATION GME ATTESTATION My faculty preceptor for this patient encounter was physically present during the encounter and was fully available. All aspects of the patient interview, examination, medical decision making process, and medical care plan development were reviewed and approved by the faculty preceptor. The faculty preceptor is aware and concurs with the plan as stated in the body of this note and will attest to such by his/her cosignature. ATTENDING NOTE I, Mor Ford, have independently examined this patient and performed my own physical exam, as well as reviewed the documentation and edited where necessary. I have discussed in detail with the resident / student the findings and plan of treatment as documented by the resident / student and edited their note. I agree with their findings and treatment plan and have edited their documentation. I will continue to follow the patient during this hospital stay. Time spent on discharge 35 minutes LANDON LOVE DO Aug 15, 2019 10:29 MOR FORD MD Aug 15, 2019 15:32
== END 2019-08-15 11:20 | disposition home or self-care (01) | DRG 159 ==
LOC: M ED 09:53 → M ED INP 14:14 → M PED 15:25
PROVIDERS: ADMIT Internal Medicine; ATTEND Internal Medicine
PROC: 0H91XZZ Drainage of Face Skin, External Approach (ICD-10-PCS; 2019-08-13)
PROC: 0CTX0Z0 Resection of Lower Tooth, Single, Open Approach (ICD-10-PCS; principal; 2019-08-13 16:43)
DX: K12.2 Cellulitis and abscess of mouth (principal); F17.210 Nicotine dependence, cigarettes, uncomplicated; Z79.899 Other long term (current) drug therapy; Z88.0 Allergy status to penicillin; Z88.2 Allergy status to sulfonamides; Z88.8 Allergy status to other drugs, medicaments and biological substances; D64.9 Anemia, unspecified

== ENCOUNTER 2019-08-16 19:50 | Emergency (ER) | payer OTHER ==
[~2019-08-16] VITALS: Ht 154.9 cm; Wt 49.1 kg
[~2019-08-16 19:50] MED LIST changes: +ACET-897 PO; +ALEV220T22 PO; +CLEO150C PO; +PERI0.126 PO; +TRAM50TA2 PO
[2019-08-16 21:02] LABS: BASO # 0.1 10^3/uL (0.0-0.2); BASO % 0.6 % (0.0-1.0); EOS # 0.3 10^3/uL (0.0-0.5); EOS % 3.2 % (0.0-3.0); HEMATOCRIT 35.8 % (36.0-47.0); LYMPH # 1.6 10^3/uL (1.5-5.0); LYMPH % 15.7 % (24.0-44.0); MEAN CORPUSCULAR HEMOGLOBIN 28.8 pg (27.0-33.0); MEAN CORPUSCULAR HGB CONC 33.5 g/dl (32.0-36.5); MEAN CORPUSCULAR VOLUME 86.1 fl (80.0-96.0); MONO # 0.9 10^3/uL (0.0-0.8); MONO % 9.3 % (0.0-5.0); NEUTROPHILS % 70.8 % (36.0-66.0); PLATELET COUNT, AUTOMATED 295 10^3/uL (150-450); RED BLOOD COUNT 4.16 10^6/uL (4.00-5.40); WHITE BLOOD COUNT 9.9 10^3/uL (4.0-10.0)
[2019-08-16 21:22] LABS: ERYTHROCYTE SEDIMENTATION RATE 38 mm/hr (0-30)
[2019-08-16] MEDS ORDERED: ISOVUE-370 76% 100ML VIAL (Q9967) As Ordered ONE (21:52)
--- NOTE | 2019-08-16 22:36 | REPVR ---
PROCEDURE INFORMATION: Exam: CT Neck With Contrast Exam date and time: 08/16/2019 9:51 PM Clinical history: 54 years old, female; Neck pain; Prior surgery; Surgery date: Post-operative (0-2 days); Surgery type: Dental abscess drain; Additional info: Dental abscess, drain removed yesterday, more swelling TECHNIQUE: Imaging protocol: Computed tomography images of the neck with intravenous contrast. Radiation optimization: All CT scans at this facility use at least one of these dose optimization techniques: automated exposure control; mA and/or kV adjustment per patient size (includes targeted exams where dose is matched to clinical indication); or iterative reconstruction. Contrast material: ISOVUE 370; Contrast volume: 75 ml; Contrast route: IV; COMPARISON: CT Neck with contrast 08/13/2019 11:32 AM FINDINGS: Nasopharynx: Unremarkable. Oropharynx: Unremarkable. No significant tonsillar enlargement. Hypopharynx: Unremarkable Larynx: Unremarkable. Normal epiglottis. Retropharyngeal space: Unremarkable. Submandibular/Parotid glands: Normal. Glands are normal in size. Thyroid: Normal. No enlarged or calcified nodules. Lymph nodes: Mild left cervical chain adenopathy. Trachea: Visualized trachea is unremarkable. Lungs: Upper lung moderate centrilobular pulmonary emphysema. Bones/joints: Unremarkable. No acute fracture. Soft tissues: Left inframandibular 2 x 1.4 cm abscess, previously 2 x 1.7 cm. Along the lateral left hemimandible, gas foci and fluid collection measuring 1.4 x 2.9 cm contiguous, or separate adjacent abscess. Left perimandibular phlegmon and inflammation. IMPRESSION: Left inframandibular 2 x 1.4 cm abscess, previously 2 x 1.7 cm. Along the lateral left hemimandible, gas foci and fluid collection measuring 1.4 x 2.9 cm contiguous, or separate adjacent abscess. Left perimandibular phlegmon and inflammation. Electronically signed by: Jose Elias Madrigal On 08/16/2019 22:35:47 PM
[2019-08-16 23:15] VITALS: BP 142/70
--- NOTE | 2019-08-17 15:38 | ED PDOC ---
Post-Departure Follow-Up dr fiore and delvis chawla faxed formal report of ct neck for up Mo Nelson MD Aug 17, 2019 15:38
== END 2019-08-16 23:16 | disposition home or self-care (01) ==
LOC: M ED 19:50
DX: R68.84 Jaw pain (principal); R22.0 Localized swelling, mass and lump, head; K12.2 Cellulitis and abscess of mouth; F17.200 Nicotine dependence, unspecified, uncomplicated; Z79.890 Hormone replacement therapy; Z88.0 Allergy status to penicillin; Z88.2 Allergy status to sulfonamides; Z88.5 Allergy status to narcotic agent; Z88.8 Allergy status to other drugs, medicaments and biological substances; Z91.89 Other specified personal risk factors, not elsewhere classified
CPT/HCPCS: 70491; 80047; 85025; 85652; 86140; 87040; 99284; Q9967

== ENCOUNTER 2019-08-18 11:50 | Inpatient (IN) | payer OTHER ==
[~2019-08-18] VITALS: Ht 154.9 cm; Wt 48.3 kg
[2019-08-18] MEDS ORDERED: ISOVUE-370 76% 100ML VIAL (Q9967) As Ordered ONE (12:20)
[2019-08-18] MEDS ORDERED: LevoFLOXacin IV 750 MG in IV 1 EA IV ONE (12:30)
[2019-08-18 12:31] LABS: BASO # 0.1 10^3/uL (0.0-0.2); BASO % 0.4 % (0.0-1.0); EOS # 0.3 10^3/uL (0.0-0.5); EOS % 2.5 % (0.0-3.0); HEMATOCRIT 42.2 % (36.0-47.0); LYMPH # 2.1 10^3/uL (1.5-5.0); MEAN CORPUSCULAR HEMOGLOBIN 29.1 pg (27.0-33.0); MEAN CORPUSCULAR HGB CONC 33.9 g/dl (32.0-36.5); MEAN CORPUSCULAR VOLUME 85.8 fl (80.0-96.0); MONO % 7.2 % (0.0-5.0); NEUTROPHILS # 10.3 10^3/uL (1.5-8.5); NEUTROPHILS % 74.6 % (36.0-66.0); PLATELET COUNT, AUTOMATED 389 10^3/uL (150-450); RED BLOOD COUNT 4.92 10^6/uL (4.00-5.40); WHITE BLOOD COUNT 13.8 10^3/uL (4.0-10.0)
[2019-08-18 12:38] LABS: HEMOGLOBIN 14.3 g/dl (12.0-15.5)
[2019-08-18] MEDS ORDERED: dexameTHASONE 20 MG/5 ML VIAL (J1100) IV ONE (12:45)
--- NOTE | 2019-08-18 12:51 | REP ---
CT neck: 08/18/2019. Indication: Left facial swelling. Comparison: 2 days earlier. Technique: Axial images of the neck soft tissues were obtained following IV administration of 75 ml Isovue 370. Coronal and sagittal reconstructions were provided. Findings: Left perimandibular/submandibular abscess is redemonstrated that tracks along the medial and lateral aspect of the mandible. There is resolution of the previously described air droplets . There is a lucency within the suspected region of a recently extracted left second mandibular molar which does show cortical breakthrough along the inferomedial aspect. There is inflammation/stranding within the adjacent tissues which appears to have mildly increased. No new fluid collections are present. The study is otherwise unchanged. Impression: Persistent left perimandibular abscess which is essentially unchanged in size. Likely odontogenic source as described. Electronically Signed by Joseph Kaminski DO 08/18/2019 12:43 P
[2019-08-18 13:01] LABS: ALT/SGPT 31 U/L (12-78); BILIRUBIN,DIRECT < 0.1 MG/DL (0.0-0.2); BILIRUBIN,TOTAL 0.3 MG/DL (0.2-1.0); BLOOD UREA NITROGEN 13 MG/DL (7-18); CALCIUM LEVEL 9.6 MG/DL (8.5-10.1); CARBON DIOXIDE LEVEL 26 MEQ/L (21-32); CHLORIDE LEVEL 103 MEQ/L (98-107); CREATININE FOR GFR 0.83 MG/DL (0.55-1.30); GLOMERULAR FILTRATION RATE > 60.0 (>51); GLUCOSE, FASTING 92 MG/DL (70-100); POTASSIUM SERUM 4.2 MEQ/L (3.5-5.1); SODIUM LEVEL 137 MEQ/L (136-145); TOTAL PROTEIN 7.4 GM/DL (6.4-8.2)
--- NOTE | 2019-08-18 13:07 | IPNPDOC ---
Text Note Date of Service The patient was seen on 08/18/19. NOTE 54 yo with history of infected molar extracted last week complicated by soft tissue infection. Was on oral abx that were resistant the organism Now presents with worse swelling in left neck and face Afebrile, No airway issue, stridor or drooling Voice is normal Marked induration and swelling frim mid mandible to angle that is NOT fluctuant There is some mild trismus but intratorraly the tonuge is not fixed and there is no edema or displacemtn of the lateral pharynx or soft palate The neck is tender but not red or hot CT reviewed looks to have a perimandublar abscess persisting. I suspect there is still a septic tooth on that side and this may be confirmed by a recent Panorex per Dr. Raman Plan is to Admit for IV ABX per ID consult Elevation of head of bed. Warm compresses and NPO after Midnight to prepare to go to OR for further drainage and extraction of remaining molar on that side per Oral Surgery. VS,Amandae, I+O VS, Sukhdeepbone, I+O Laboratory Tests 08/18/19 12:11 Vital Signs Date Time Temp Pulse Resp B/P (MAP) Pulse Ox O2 Delivery O2 Flow Rate FiO2 08/18/19 12:03 08/18/19 11:51 98.6 107 18 99 Room Air GERRY ZHENG MD Aug 18, 2019 13:07
[2019-08-18] MEDS ORDERED: PERI0.126 MT (13:30)
[2019-08-18] MEDS ORDERED: CLIN150C14 PO (13:30)
--- NOTE | 2019-08-18 13:43 | REP ---
Panorex mandible series: Single view. History: The patient is status post emergency oral surgery several days ago. Findings: The left mandibular wisdom tooth appears to have been extracted. There is no bony destructive lesion appreciated. Electronically Signed by Darrell Leavitt MD 08/18/2019 01:34 P
[2019-08-18] MEDS ORDERED: MOXI400T11 PO (14:10)
[2019-08-18] MEDS ORDERED: ACETAMINOPHEN TAB 650MG DOSE (2X325MG) PO PRN (15:00)
[2019-08-18] MEDS ORDERED: MORPHINE 4 MG/ML 1ML VIAL/SYRINGE (J2270) IV PRN (15:00)
--- NOTE | 2019-08-18 15:44 | ECGEPIP ---
[facility] - ED Test Date: 2019-08-18 Pat Name: ANGEL RG Department: Room: - Gender: Female Vice President Of [employer]: : 1965 Requested By: Mo Ralph Order Number: [id number] Reading MD: Sandy Cruz Measurements Intervals Gamaliel Rate: 83 P: 46 VA: 153 QRS: 67 QRSD: 85 T: 53 QT: 346 QTc: 408 Interpretive Statements SINUS RHYTHM Electronically Signed on 08-18-2019 15:44:38 EDT by Sandy Cruz
[2019-08-18] MEDS: NS 1,000 ML IV SCH (16:32)
--- NOTE | 2019-08-18 16:33 | HPEPDOC ---
[facility] Medical History & Physical Date of Admission Aug 18, 2019 Date of Service: Aug 18, 2019 Attending Physician: KACEY BOURGEOIS MD History and Physical CHIEF COMPLAINT: Left perimandibular abscess HISTORY OF PRESENT ILLNESS: Patient is a 54-year-old white female with a benign past medical history presenting back to the emergency department on 08/18/2019 with a chief complaint of progressive perimandibular abscess. Patient had a previous admission to [facility] on 08/13/2019 when the infection was first identified. During her stay, she was treated with IV clindamycin and a drain was placed by Dr. Ramey, oral surgeon. Patient showed subsequent improvement and after drain removal was cleared for discharge on 08/15/2019. Over the past 3 days, Culture report returned and showed resistance to clindamycin. During this period, the abscess continued to grow anteriorly along her mandible. Today she notes increased pain in her left jaw as well as tingling. She is afebrile and hypertensive with a blood pressure 181/80, pulse of 101, respiratory rate of 16 and O2 sat 100% on room air. CBCs shows an elevated white count of 13.8 with an increased percentage of neutrophils at 74.6%. She reports no shortness of breath or difficulty breathing. Prior to seeing her, she had met with ENT who explained the plan of draining the abscess. Additionally, conside ring susceptibility report as well as patient's multiple allergies, she was placed on Levaquin IV. Patient is joined today with her twin sister, mother and . Patient's sister was adamant that she not be treated with morphine for pain, however, pain management was discussed with the patient and orders for acetaminophen and morphine were placed as needed. PAST MEDICAL HISTORY: No significant past medical history PAST SURGICAL HISTORY: D&C, 3 Hysterectomy Right elbow repair Cholecystectomy SOCIAL HISTORY: Marital status: Single Resides in: Own home with her boyfriend, her son, her boyfriend son and an epileptic pet dog. Children:1 son Tobacco use: Patient smokes approximately 1/2-2/3 packs of cigarettes per day. She's been doing so since she was in her late teens. ETOH: Patient denies any recent alcohol use or intoxication. Illicit drug use: Patient denies any illicit drug use including marijuana. IV drug use: Patient denies any IV drug use. Other relevant social factors: Patient does have an identical twin sister with whom she is very close. FAMILY HISTORY: Father: Alive, 81 years old, hypertension Mother: Alive, no medical problems Siblings: Identical twin sister, alive Children: Healthy, no medical problems ALLERGIES: Please see below. REVIEW OF SYSTEMS: CONSTITUTIONAL: She reports feeling slight chills. Patient denies any fevers, difficulty sleeping, or weight loss HEENT: Denies any headache. She reports severe pain in her left jaw. Denies any hearing loss or tinnitus Patient also reports increased rhinorrhea and sinus pressure particularly on the left maxillary area. She does have difficulty open ing her mouth beyond one fingers breath due to pain and pressure. CARDIOVASCULAR: Patient denies any chest pain or pressure RESPIRATORY: Patient denies any recent respiratory illnesses. No difficulty breathing, no recent wheezing or cough. GASTROINTESTINAL: Denies any nausea, vomiting, reflux, abdominal pain, diarrhea or constipation GENITOURINARY: Denies any difficulty with urination including dysuria or frequency. SKIN: Reports left-sided mandibular skin tightness, no recent rashes or bruisi ng. MUSCULOSKELETAL: Patient denies any muscle or joint aches or pains. NEUROLOGICAL: Patient denies any focal neurologic deficits, no numbness tingling or paresthesias in her arms/feet her extremities. HOME MEDICATIONS: Please see below. PHYSICAL EXAMINATION: VITAL SIGNS: Temperature 98.6, pulse 101, respiratory rate 16, blood pressure 181/80 (130), pulse oximetry 100 % on room air. GENERAL APPEARANCE: Patient was interviewed and examined in ED. Patient was lying in her hospital bed, and appeared uncomfortable and anxious. Patient's identical twin sister, and mother were at bedside. Patient was alert and oriented. She was able to answer questions appropriately and adequately participate in her care. HEENT: Normocephalic, atraumatic. Patient does demonstrate moderate amount of submandibular swelling on the left. Tenderness to palpation along the mandibular ramus and angle. No appreciable lymphadenopathy. Patient was unable to open her mouth more than a finger width and oral cavity wasn't able to be adequately inspected. CARDIOVASCULAR: Regular rate and rhythm, normal S1 and S2. No murmurs appreciated LUNGS: Clear to auscultation bilaterally without any noticeable wheezing rales or rhonchi. Regular anterior posterior lung thompson. ABDOMEN: Soft, nontender, nondistended, no rigidity or guarding. No palpable masses or organomegaly. EXTREMITIES: No lower extremity edema/swelling, tenderness bilaterally NEUROLOGICAL: No focal neurologic deficit. Alert and oriented to person place and time PSYCHIATRIC: Mood and affect are appropriate given patient's current medical condition LABORATORY DATA: See below. IMAGING: Neck CT (08/18/19): Persistent left pat-mandibular abscess Dental X-ray (08/08/19): Left mandibular wisdom tooth extracted. No bony destructive lesion appreciated MICROBIOLOGY: Please see below. ASSESSMENT: Patient is a 54-year-old white female with a benign past medical history presenting back to the emergency department with a progressive perimandibular abscess. Culture report showed resistance to prescribed clindamycin and patient was switched to IV Levaquin. Patient was seen by ENT and is scheduled to undergo drainage of abscess. Patient is scheduled to be admitted to the floor and erica nued on IV antibiotics. PLAN: #Submandibular cellulitis/abscess Physical exam demonstrates moderate amount of submandibular swelling along the inferior aspect of the mandibular ramus. It appears to have grown anteriorly along the mandible. Patient is currently being treated with IV Levofloxacin 750 mg daily She has been seen by oral surgery and ENT Current management plan is for patient to undergo surgical drainage tomorrow, 08/19/2019 #Pain Management 650 mg of acetaminophen by mouth when necessary 2 mg IV morphine when necessary #Nicotine dependence Nicotine patch to be provided in addition to smoke cessation material. DVT prophylaxis: Lissy score of 3. Mechanical prophylaxis indicated, ERWIN and sequentials Vital Signs Vital Signs Date Time Temp Pulse Resp B/P (MAP) Pulse Ox O2 Delivery O2 Flow Rate FiO2 08/18/19 14:05 98 08/18/19 14:00 136/70 (92) 08/18/19 12:50 98 08/18/19 11:51 98.6 18 Room Air Laboratory Data Labs 24H Laboratory Tests 2 08/18/19 12:11: Immature Granulocyte % (Auto) 0.3, Neutrophils (%) (Auto) 74.6H, Lymphocytes (%) (Auto) 15.0L, Monocytes (%) (Auto) 7.2H, Eosinophils (%) (Auto) 2.5, Basophils (%) (Auto) 0.4, Neutrophils # (Auto) 10.3H, Lymphocytes # (Auto) 2.1, Monocytes # (Auto) 1.0H, Eosinophils # (Auto) 0.3, Basophils # (Auto) 0.1, Nucleated Red Blood Cells % (auto) 0.0, POC Glucose (Misc Panel) 95, POC Sodium (Misc Panel) 138, POC Potassium (Misc Panel) 3.9, POC Chloride (Misc Panel) 101, POC Total CO2 (Misc Panel) 27.0, POC Blood Urea Nitrogen (Misc Panel 13, POC Ionized Calcium (Misc Panel) 4.6, POC Creatinine (Misc Panel) 0.8, POC Hematocrit (Misc Panel) 44.0, Anion Gap 8, Glomerular Filtration Rate > 60.0, Lactic Acid Level 1.1, Calcium Level 9.6, Total Bilirubin 0.3, Direct Bilirubin < 0.1, Aspartate Amino Transf (AST/SGOT) 17, Alanine Aminotransferase (ALT/SGPT) 31, Alkaline Phosphatase 133H, Total Protein 7.4, Albumin 4.0, Albumin/Globulin Ratio 1.18 CBC/BMP Laboratory Tests 08/18/19 12:11 Microbiology Microbiology 08/18/19 Blood Culture, Received Pending 08/18/19 Blood Culture, Received Pending Home Medications Scheduled Chlorhexidine Gluconate (Peridex) 473 Ml Mouthwash, 15 M MT BID Clindamycin Hcl (Clindamycin HCl) 150 Mg Capsule, 450 MG PO Q8H Estradiol (Estradiol) 1 Mg Tablet, 1 MG PO DAILY Scheduled PRN Acetaminophen (Tylenol Extra Strength) 500 Mg Tablet, 500 MG PO QID PRN for PAIN Naproxen Sodium (Aleve) 220 Mg Tablet, 220 MG PO BID PRN for PAIN Miscellaneous Medications Moxifloxacin HCl (Moxifloxacin HCl) 400 Mg Tablet, 400 MG PO Allergies Coded Allergies: succinylcholine (Verified Allergy, Severe, family hx MH, 08/13/19) identical twin had MH reaction Penicillins (Verified Allergy, Mild, HIVES, 08/13/19) Sulfa (Sulfonamide Antibiotics) (Verified Allergy, Mild, HIVES, 08/13/19) amoxicillin (Verified Allergy, Mild, HIVES, 08/13/19) clavulanic acid (Verified Allergy, Mild, HIVES, 08/13/19) red dye (Verified Allergy, Unknown, 08/13/19) hives hydrocodone (Verified Adverse Reaction, Unknown, VOMITING, 08/13/19) A-FIB/CHADSVASC A-FIB History Current/History of A-Fib/PAF?: No GME ATTESTATION GME ATTESTATION I performed a history and physical examination of the patient and discussed their management with the above documenter. I reviewed the note and agree with the documented findings and plan of care. Patient's family expressed desire to leave the hospital AGAINST MEDICAL ADVICE and proceed care in [place] after lengthy conversation education by multiple medical providers aerobic receiving care here at [facility] I have ordered a spoken with infectious disease patient was seen by both ENT and oral surgery today TRINI HUDSON-3 Aug 18, 2019 15:22 LANDON LOVE DO Aug 18, 2019 17:18 KACEY BOURGEOIS MD Aug 19, 2019 13:07
[2019-08-18] MEDS ORDERED: NICOTINE 14 MG/24 HR TRANSDERMAL TD ONE (20:00)
[2019-08-18] MEDS: MOXIFLOXACIN HCL 400 MG in IV 1 EA IV SCH (20:32)
[2019-08-18] MEDS: LACTOBACILLUS ACIDOPHILUS CAP (BACID) PO SCH (20:36)
[2019-08-18 21:38] VITALS: BP 103/57
[2019-08-19] VITALS (7 sets, daily range): BP systolic 112–163; BP diastolic 62–72
[2019-08-19] MEDS: NS 1,000 ML IV SCH ×2 (06:31→21:57)
[2019-08-19] MEDS: MORPHINE 4 MG/ML 1ML VIAL/SYRINGE (J2270) IV PRN ×2 (06:32→17:27)
[2019-08-19 06:46] LABS: HEMATOCRIT 36.3 % (36.0-47.0); MEAN CORPUSCULAR HEMOGLOBIN 28.3 pg (27.0-33.0); MEAN CORPUSCULAR HGB CONC 33.1 g/dl (32.0-36.5); MEAN CORPUSCULAR VOLUME 85.6 fl (80.0-96.0); PLATELET COUNT, AUTOMATED 351 10^3/uL (150-450); RED BLOOD COUNT 4.24 10^6/uL (4.00-5.40); WHITE BLOOD COUNT 11.2 10^3/uL (4.0-10.0)
[2019-08-19 07:14] LABS: ALBUMIN 2.9 GM/DL (3.2-5.2); ALT/SGPT 22 U/L (12-78); BILIRUBIN,TOTAL 0.2 MG/DL (0.2-1.0); BLOOD UREA NITROGEN 9 MG/DL (7-18); CALCIUM LEVEL 8.9 MG/DL (8.5-10.1); CARBON DIOXIDE LEVEL 26 MEQ/L (21-32); CHLORIDE LEVEL 111 MEQ/L (98-107); CREATININE FOR GFR 0.73 MG/DL (0.55-1.30); GLOMERULAR FILTRATION RATE > 60.0 (>51); GLUCOSE, FASTING 91 MG/DL (70-100); SODIUM LEVEL 141 MEQ/L (136-145); TOTAL PROTEIN 6.7 GM/DL (6.4-8.2)
[2019-08-19] MEDS: LACTOBACILLUS ACIDOPHILUS CAP (BACID) PO SCH (08:07)
--- NOTE | 2019-08-19 09:00 | IPNPDOC ---
Date Seen The patient was seen on 08/19/19. Progress Note SUBJECTIVE: Patient was interviewed and examined her hospital room. Patient was in no acute distress surrounded by her mother and twin sister. She states that overnight she did receive 2 mg of morphine around 9:00 and again at about 7:00 this morning. This her pain is relatively well controlled she does complain of increased tightness in the area. Patient also states that she is experiencing a mild amount of right ear pain. She denies any fevers or chills. No nausea or vomiting overnight. She remains free of chest pain or shortness of breath. OBJECTIVE: PHYSICAL EXAMINATION: VITAL SIGNS: Please see below. GENERAL: Patient is interviewed and examined in her hospital room this morning. Patient was found to be resting comfortably in her bed surrounded by her mother and twin sister. She does not appear to be in any acute distress though she is visibly anxious regarding her upcoming procedure. Appears stated age. HEENT: Significant for left-sided submandibular swelling without any overlying erythema appreciated. Moderate induration of the area noted with persisting tenderness. Patient does not appear to cross midline. Patient is able to open her mouth approximately 2 fingers width wide, slightly improved from yesterday. No obvious fluctuance noted CARDIOVASCULAR: Regular rate and rhythm, normal S1 and S2 no murmurs. RESPIRATORY: Patient is not interested any difficulty with her airway. Patient is conversant and able to speak clearly. Clear to auscultation bilaterally ABDOMINAL: Soft, nontender, nondistended EXTREMITIES: No lower extremity edema or calf tenderness bilaterally. Peripheral pulses 2+ in both radial and posterior tibial. No obvious bruising. NEUROLOGICAL: No obvious focal neurologic deficits. Patient is alert and orie nted 3 PSYCHOLOGICAL: Patient does appear anxious. Mood and affect are congruent. LABORATORY DATA: Please see below IMAGING STUDIES: Dental x-ray (08/18/19): Left mandibular wisdom tooth appears to have been extracted. There is no bony destructive lesion appreciated. CT neck with contrast (08/18/19): Persistent left perimandibular abscess which is essentially unchanged in size. Likely O odontogenic source as described. MICROBIOLOGY: Blood cultures (08/18/19): Obtained and remain pending ASSESSMENT AND PLAN: Patient is a 54-year-old white female with a benign past medical history who p resented to the emergency department on 08/18/19 for recurrent left-sided submandibular abscess with increased swelling and pain. Both oral surgery and ENT has been consulted. Patient's culture and sensitivities from her prior admission have resulted in demonstrate her bacteria to be resistant to cl indamycin. Infectious disease has been consulted. Patient has been started on moxifloxacin given susceptibilities and need for anaerobic coverage. Patient will be brought to the OR for subsequent tooth extraction and drainage of her perimandibular abscess. PROBLEMS: #Submandibular cellulitis/abscess Physical exam demonstrates moderate amount of submandibular swelling along the inferior aspect of the mandibular ramus. It appears to have grown anteriorly along the mandible since prior admission. Examination, this morning does demonstrate some mild improvement. Infectious disease has been consulted and we appreciate her assistance in management of this patient. Patient is currently being treated with IV moxifloxacin as cultures demonstrate susceptibility and adds anaerobic coverage. Continue with warm compresses as needed. Keep head of bed elevated Oral surgery and ENT of also been consulted and we appreciate their assistance as well. Planned dental extraction the afternoon of 08/19/19 and subsequent abscess drainage. #Pain Management 650 mg of acetaminophen by mouth when necessary 2 mg of IV morphine every 4 hours when necessary #Nicotine dependence Smoking cessation education material to be provided 40 mg nicotine patch prescribed. DVT Prophylaxis: Teds and sequentials VS, I&O, 24H, Fishbone Vital Signs/I&O Vital Signs Date Time Temp Pulse Resp B/P (MAP) Pulse Ox O2 Delivery O2 Flow Rate FiO2 08/19/19 06:42 16 08/19/19 05:47 96.7 87 112/62 (79) 99 Room Air I&O- Last 24 Hours up to 6 AM 08/19/19 06:00 Intake Total 1140 ml Output Total 0 ml Balance 1140 ml Laboratory Data 24H LABS Laboratory Tests 2 08/18/19 12:11: Immature Granulocyte % (Auto) 0.3, Neutrophils (%) (Auto) 74.6H, Lymphocytes (%) (Auto) 15.0L, Monocytes (%) (Auto) 7.2H, Eosinophils (%) (Auto) 2.5, Basophils (%) (Auto) 0.4, Neutrophils # (Auto) 10.3H, Lymphocytes # (Auto) 2.1, Monocytes # (Auto) 1.0H, Eosinophils # (Auto) 0.3, Basophils # (Auto) 0.1, Nucleated Red Blood Cells % (auto) 0.0, POC Glucose (Misc Panel) 95, POC Sodium (Misc Panel) 138, POC Potassium (Misc Panel) 3.9, POC Chloride (Misc Panel) 101, POC Total CO2 (Misc Panel) 27.0, POC Blood Urea Nitrogen (Misc Panel 13, POC Ionized Calcium (Misc Panel) 4.6, POC Creatinine (Misc Panel) 0.8, POC Hematocrit (Misc Panel) 44.0, Anion Gap 8, Glomerular Filtration Rate > 60.0, Lactic Acid Level 1.1, Calcium Level 9.6, Total Bilirubin 0.3, Direct Bilirubin < 0.1, Aspartate Amino Transf (AST/SGOT) 17, Alanine Aminotransferase (ALT/SGPT) 31, Alkaline Phosphatase 133H, Total Protein 7.4, Albumin 4.0, Albumin/Globulin Ratio 1.18 08/19/19 06:28: Anion Gap 4L, Glomerular Filtration Rate > 60.0, Calcium Level 8.9, Total Bilirubin 0.2, Aspartate Amino Transf (AST/SGOT) 10, Alanine Aminotransferase (ALT/SGPT) 22, Alkaline Phosphatase 112, Total Protein 6.7, Albumin 2.9#L, Albumin/Globulin Ratio 0.76L 08/19/19 06:32: Nucleated Red Blood Cells % (auto) 0.0 CBC/BMP Laboratory Tests 08/18/19 12:11 08/19/19 06:28 08/19/19 06:32 Microbiology Microbiology 08/18/19 Blood Culture, Received Pending 08/18/19 Blood Culture, Received Pending GME ATTESTATION GME ATTESTATION I saw and evaluated the patient. I agree with the findings and plan of care as documented in the above note LANDON LOVE DO Aug 19, 2019 09:00 KACEY BOURGEOIS MD Aug 21, 2019 14:49
[2019-08-19 10:56] LABS: C REACTIVE PROTEIN QUANTITATIV 3.95 MG/DL (0.00-0.30)
[2019-08-19] MEDS ORDERED: MOXIFLOXACIN HCL 400 MG in IV 1 EA IV SCH (12:00)
[2019-08-19] MEDS ORDERED: LevoFLOXacin IV 750 MG in IV 1 EA IV SCH (13:00)
[2019-08-19] MEDS: ACETAMINOPHEN TAB 650MG DOSE (2X325MG) PO SCH ×2 (14:00→21:59)
[2019-08-19] MEDS ORDERED: PROPOFOL 200 MG/20 ML VIAL As Ordered ONE ×2 (14:00→15:16)
[2019-08-19] MEDS: IBUPROFEN 400 MG TAB PO SCH ×2 (14:00→21:59)
[2019-08-19] MEDS ORDERED: REMIFENTANIL 1MG 3ML VIAL As Ordered ONE (14:00)
[2019-08-19] MEDS ORDERED: MEPIVACAINE HCL 3 % 1.7 ML DENTAL CARTRIDGE (CARBOCAINE) (J0670) As Ordered ONE (14:05)
[2019-08-19] MEDS ORDERED: LIDOCAINE W/EPINEPHRINE 1% 20ML VIAL As Ordered ONE (14:05)
[2019-08-19] MEDS ORDERED: LIDOCAINE 2% W/ EPINEPHRINE 1.7 ML DENTAL INJ As Ordered ONE (14:05)
[2019-08-19] MEDS ORDERED: BACITRACIN OINT 30GM As Ordered ONE (14:05)
[2019-08-19] MEDS ORDERED: CHLORHEXIDINE GLUCONATE 0.12 % 15ML UDC (PERIDEX ORAL RINSE) As Ordered ONE (14:05)
[2019-08-19] MEDS ORDERED: ONDANSETRON 4MG/2ML VIAL (J2405) As Ordered ONE (15:16)
[2019-08-19] MEDS ORDERED: ROCURONIUM BROMIDE 50 MG/5 ML VIAL As Ordered ONE (15:16)
[2019-08-19] MEDS ORDERED: SUGAMMADEX SODIUM 500 MG/5 ML VIAL (BRIDION) As Ordered ONE (15:16)
[2019-08-19] MEDS ORDERED: dexameTHASONE 4 MG/ML 1ML VIAL (J1100) As Ordered ONE (15:16)
[2019-08-19] MEDS ORDERED: fentaNYL 250 MCG/5 ML INJECTION (J3010) As Ordered ONE (15:16)
[2019-08-19] MEDS ORDERED: LIDOCAINE 2% INJ 100 MG/5 ML SDV (FOR ANES.) As Ordered ONE (15:16)
[2019-08-19] MEDS ORDERED: fentaNYL 100 MCG/2 ML INJECTION (J3010) As Ordered ONE (15:26)
[2019-08-19] MEDS: fentaNYL 100 MCG/2 ML INJECTION (J3010) IV PRN ×4 (15:29→15:45)
[2019-08-19] MEDS ORDERED: MORPHINE 10 MG/ML 1ML VIAL (J2270) As Ordered ONE (15:49)
[2019-08-19] MEDS: MORPHINE 10 MG/ML 1ML VIAL (J2270) IV PRN ×2 (15:51→15:56)
[2019-08-19] MEDS ORDERED: LR 1,000 ML IV SCH (16:00)
[2019-08-19] MEDS ORDERED: ONDANSETRON 4MG/2ML VIAL (J2405) IV PRN (16:00)
--- NOTE | 2019-08-19 16:44 | CR ---
DATE OF CONSULTATION: 08/19/2019 I was asked to consult by Dr. Bowling for evaluation of left perimandibular abscess diagnosed on 08/13/2019. The patient presented to the hospital with severe dental pain, swelling of her jaw and was taken to the OR by Dr. Ramey on 08/13/2019 for extraction of tooth #18 and I and D. The patient received IV clindamycin in the hospital and then discharge. She had wound cultures sent were positive for polymicrobial oral glendy including Streptococcus mitis Aurelius and anaerobic cocci Prevotella. The patient progressively got worse after discharge called Dr. Ramey's office who changed her prescription to moxifloxacin on before admission. She took one dose of moxifloxacin on on Thursday the pain was excruciating she had trismus she could not open her mouth more than 10 degrees. She could not eat had anorexia. She had was lost about 7 pounds. She came back to the ER yesterday and was admitted to the hospital. She received one dose of IV Decadron to decrease the swelling and IV Avelox. Blood cultures on 08/13 were negative blood cultures on 08/16 when she came back to the ER for a visit because of worsening pain were negative as well. The patient only had a low grade fever, a week ago that has resolved. She has no nausea, vomiting or diarrhea. No history of C diff. Allergy: penicillin, hives. PAST MEDICAL HISTORY: Significant for history of mono in April 2019 gallstones status post cholecystectomy in June 2019. PAST SURGICAL HISTORY: , D and C, hysterectomy, she takes estradiol for menopause right elbow repair, cholecystectomy done by Dr. Delvalle June 2019. SOCIAL HISTORY: She is single. She lives with her boyfriend. Her son has graduated last year and is working. She also lives with her boyfriend's son and she has a dog. Smokes 2/3 packs of cigarettes a day. Alcohol socially. FAMILY HISTORY: Malignant hyperthermia in her sister and cousins. ALLERGIES: Penicillin, hydrocodone right eye succinylcholine because her sister has malignant hyperthermia. MEDICATIONS: Ibuprofen 400 mg by mouth every 8 hours, Tylenol as needed, morphine as needed, moxifloxacin 400 mg IV every 24 hours and probiotics 1 tablet daily the patient has refused. LABORATORY DATA: White count yesterday was 13.8 today 11.2, hemoglobin 12, hematocrit 36.3, platelets 351. Sodium 141, potassium 4, chloride 111, bicarb 26, BUN 9, creatinine 0.73, glucose 91, calcium 8.9, bilirubin 0.2, AST 10, ALT 22, alk phos of 112, CRP 3.95 down from 6.2 on 08/15. Blood cultures 08/13, 08/16, 08/18, all negative. Abscess culture from 08/13 strep mitis Streptococcus Aurelius both resistant to clindamycin and tetracycline and anaerobic strep as well as Prevotella. IMAGING: Neck CT, three have been done in the past week. There is a left perimandibular submandibular abscess that tracts along the medial and lateral aspect of the mandible lucency within the suspected region of the left that can mandibular molar which shows cortical breakthrough, inflammation and stranding within the adjacent tissues have mild decreased. Dental x-ray done on 08/18, assessment of the lower wisdom tooth has been extracted. There is no bony destructive lesion noted. PHYSICAL EXAMINATION: Temperature is 96.7, pulse 87, respirations 20, blood pressure 112/62, O2 sat 99% on room air. Heart: Normal S1-S2. No murmurs, rubs or gallops. Lungs are clear. No wheezes or rhonchi. Abdomen: Soft, nontender. No visceromegaly. Extremities: No clubbing, cyanosis or edema. No calf tenderness. Left mandible is swollen, erythematous with induration extending from the jaw line all the way to the jaw line all the way to the submental area. No adenopathy appreciated as there is significant induration and tenderness. She can open her mouth 20 degrees better than yesterday. Tongue no lesions appreciated. IMPRESSION: 54-year-old female with a dental abscess that has developed a cellulitis with the submandibular abscess status post extraction of tooth number 18. The patient had his head of the cavity that fell and the tooth broke over 6 months ago that she had not taking care of and has been picking at that tooth with a toothpick to get the food out of there for the past month. The patient did not respond to clindamycin obviously two of the sets have been resistant. She has improved after 24 hours of moxifloxacin. PLAN: Continue IV moxifloxacin postoperatively patient going to the operating room today for I and D. Once the patient is ready for discharge. She could be switched to oral moxifloxacin 400 mg daily for 2 weeks.
[2019-08-19] MEDS ORDERED: NICOTINE 14 MG/24 HR TRANSDERMAL TD PRN (18:45)
[2019-08-19] MEDS ORDERED: ESTRADIOL 1 MG TAB PO ONE (20:15)
[2019-08-19] MEDS: MOXIFLOXACIN HCL 400 MG in IV 1 EA IV SCH (21:58)
--- NOTE | 2019-08-19 23:37 | RO ---
DATE OF PROCEDURE: 08/19/2019 PREPROCEDURE DIAGNOSIS: Left facial swelling and nonrestorable tooth. POSTPROCEDURE DIAGNOSIS: Left facial swelling and nonrestorable tooth. PROCEDURE: Extraction of tooth #19. SURGEON: Damien Kohler DMD [employer]FIN[employer] OPERATOR [employer]: None ANESTHESIA: General. ESTIMATED BLOOD LOSS: 5 mL. COMPLICATIONS: None. SPECIMEN: Cultures and tooth. DESCRIPTION OF PROCEDURE: This procedure was performed with Dr Lewis from ENT. Extraction of tooth #19 was done. Area irrigated with saline and closed using 3- 0 gut. No complications. Damien Kohler DMD [facility]PITALTruman
[2019-08-20] MEDS: MORPHINE 4 MG/ML 1ML VIAL/SYRINGE (J2270) IV PRN (00:35)
[2019-08-20] MEDS: ACETAMINOPHEN TAB 650MG DOSE (2X325MG) PO SCH ×3 (05:30→21:48)
[2019-08-20] MEDS: IBUPROFEN 400 MG TAB PO SCH ×3 (05:30→21:48)
[2019-08-20 06:52] VITALS: BP 133/70
[2019-08-20 06:52] LABS: HEMATOCRIT 34.1 % (36.0-47.0); MEAN CORPUSCULAR HGB CONC 32.3 g/dl (32.0-36.5); MEAN CORPUSCULAR VOLUME 86.8 fl (80.0-96.0); PLATELET COUNT, AUTOMATED 344 10^3/uL (150-450); RED BLOOD COUNT 3.93 10^6/uL (4.00-5.40); WHITE BLOOD COUNT 10.7 10^3/uL (4.0-10.0)
[2019-08-20 07:24] LABS: ALBUMIN 2.8 GM/DL (3.2-5.2); ALT/SGPT 50 U/L (12-78); BILIRUBIN,TOTAL 0.3 MG/DL (0.2-1.0); BLOOD UREA NITROGEN 12 MG/DL (7-18); CALCIUM LEVEL 8.6 MG/DL (8.5-10.1); CARBON DIOXIDE LEVEL 25 MEQ/L (21-32); CHLORIDE LEVEL 109 MEQ/L (98-107); CREATININE FOR GFR 0.74 MG/DL (0.55-1.30); GLOMERULAR FILTRATION RATE > 60.0 (>51); GLUCOSE, FASTING 81 MG/DL (70-100); SODIUM LEVEL 141 MEQ/L (136-145); TOTAL PROTEIN 6.3 GM/DL (6.4-8.2)
[2019-08-20] MEDS: LACTOBACILLUS ACIDOPHILUS CAP (BACID) PO SCH (08:43)
[2019-08-20] MEDS ORDERED: ESTRADIOL 1 MG TAB PO SCH (09:00)
[2019-08-20] MEDS ORDERED: ESTRADIOL 1 MG PO SCH ×2 (09:00)
--- NOTE | 2019-08-20 10:48 | IPNPDOC ---
Text Note Date of Service The patient was seen on 08/20/19. NOTE ENT Afebrile Less pain and taking po well. This appears to be more cellulitis than abscess and is appropriately responding to the IV ABX. Exam better ability to open mouth Less swelling but still some induration over the angle of the mandible Non tender or fluctuant IMP continued improvement REC 24 hour more of IV ABX and if she continues improving, ok to send home on Dr Scotty Styles recommend ABX. I will see her on Thursday or Thursday in the ENT clinic Thank you to all the supporting consultants !! VS,Joyce, I+O VS, Joyce, I+O Laboratory Tests 08/20/19 06:26 Vital Signs Date Time Temp Pulse Resp B/P (MAP) Pulse Ox O2 Delivery O2 Flow Rate FiO2 08/20/19 06:52 98.0 70 20 133/70 (91) 99 Room Air I&O- Last 24 Hours up to 6 AM 08/20/19 05:59 Intake Total 1490 ml Output Total 5 ml Balance 1485 ml GERRY ZHENG MD Aug 20, 2019 10:48
--- NOTE | 2019-08-20 12:17 | IPNPDOC ---
Date Seen The patient was seen on 08/20/19. Progress Note SUBJECTIVE: Patient was interviewed and examined in her hospital room this morning. Patient was received upright in bed in no acute distress. She states she feels much better than yesterday noting that the swelling and pain in her submandibular and neck has greatly improved. She is able to open her mouth approximately 2.5 fingers width, improved since presentation. She denies any difficulty being able to breathe. No shortness of breath or chest pain. Patient remained grateful for the care received. OBJECTIVE: PHYSICAL EXAMINATION: VITAL SIGNS: Please see below. GENERAL: Patient is interviewed and examined in her hospital room this morning. No acute distress, alert and oriented. Appears stated age. HEENT: Moderate left-sided submandibular swelling without any overlying erythema appreciated. Patient remains mildly tender to palpation. Patient is able to open her mouth approximately 3 fingers width wide. No obvious fluctuance noted CARDIOVASCULAR: Regular rate and rhythm, normal S1 and S2 no murmurs. RESPIRATORY: Patient is not interested any difficulty with her airway. Patient is conversant and able to speak clearly. Clear to auscultation bilaterally EXTREMITIES: No lower extremity edema or calf tenderness bilaterally. No obvious bruising. NEUROLOGICAL: No obvious focal neurologic deficits. Patient is alert and oriented 3 PSYCHOLOGICAL: Patient does appear anxious. Mood and affect are congruent. LABORATORY DATA: Please see below IMAGING STUDIES: Dental x-ray (08/18/19): Left mandibular wisdom tooth appears to have been extracted. There is no bony destructive lesion appreciated. CT neck with contrast (08/18/19): Persistent left perimandibular abscess which is essentially unchanged in size. Likely O odontogenic source as described. MICROBIOLOGY: Blood cultures (08/18/19): Obtained and remain pending ASSESSMENT AND PLAN: Patient is a 54-year-old white female with a benign past medical history who presented to the emergency department on 08/18/19 for recurrent left-sided submandibular abscess with increased swelling and pain. Both oral surgery and ENT has been consulted. Patient's culture and sensitivities from her prior admission have resulted and demonstrate her bacteria to be resistant to clindamycin. Infectious disease has been consulted. Patient has been started on moxifloxacin given susceptibilities and need for anaerobic coverage. Patient was brought to the OR on 08/19/19. Patient had tooth #19 extracted and a drain placed. Patient's symptoms continued to improve with decreased swelling and tenderness to palpation. PROBLEMS: #Submandibular cellulitis/abscess Patient is postop day #1 of tooth #19 extraction and mandibular drain placement. Infectious disease has been consulted and we appreciate her assistance in management of this patient. Patient on day 3 of IV moxifloxacin. Plan to continue IV antibiotics for 24 more hours. Assuming patient continues to improve and her symptoms resolve, patient was transitioned to by mouth antibiotics with hopeful discharge tomorrow or Thursday with close follow-up by ENT. Continue to slowly advance diet. Continue with warm compresses as needed. Keep head of bed elevated. #Nicotine dependence Smoking cessation education material to be provided 40 mg nicotine patch prescribed. DVT Prophylaxis: Teds and sequentials VS, I&O, 24H, Fishbone Vital Signs/I&O Vital Signs Date Time Temp Pulse Resp B/P (MAP) Pulse Ox O2 Delivery O2 Flow Rate FiO2 08/20/19 06:52 98.0 70 20 133/70 (91) 99 Room Air I&O- Last 24 Hours up to 6 AM 08/20/19 06:00 Intake Total 1790 ml Output Total 5 ml Balance 1785 ml Laboratory Data 24H LABS Laboratory Tests 2 08/20/19 06:26: Nucleated Red Blood Cells % (auto) 0.0, Anion Gap 7L, Glomerular Filtration Rate > 60.0, Calcium Level 8.6, Total Bilirubin 0.3, Aspartate Amino Transf (AST/SGOT) 34, Alanine Aminotransferase (ALT/SGPT) 50, Alkaline Phosphatase 174H, Total Protein 6.3L, Albumin 2.8L, Albumin/Globulin Ratio 0.80L CBC/BMP Laboratory Tests 08/20/19 06:26 Microbiology Microbiology 08/19/19 Gram Stain - Final, Resulted 08/19/19 Wound Culture, Resulted Pending 08/19/19 Anaerobic Culture, Resulted Pending 08/18/19 Blood Culture - Preliminary, Resulted No growth after 24 hours . All specim... 08/18/19 Blood Culture - Preliminary, Resulted No growth after 24 hours . All specim... GME ATTESTATION GME ATTESTATION I saw and evaluated the patient. I agree with the findings and plan of care as documented in the above note LANDON LOVE DO Aug 20, 2019 12:17 KACEY BOURGEOIS MD Aug 21, 2019 14:52
[2019-08-20] MEDS: ESTRADIOL 1 MG PO SCH (12:26)
[2019-08-20 15:10] VITALS: BP 130/68
[2019-08-20] MEDS: MOXIFLOXACIN HCL 400 MG in IV 1 EA IV SCH (20:19)
[2019-08-20 22:00] VITALS: BP 128/69
[2019-08-21 06:00] VITALS: BP 133/73
[2019-08-21] MEDS: ACETAMINOPHEN TAB 650MG DOSE (2X325MG) PO SCH (06:10)
[2019-08-21] MEDS: IBUPROFEN 400 MG TAB PO SCH (06:10)
[2019-08-21 06:55] LABS: HEMATOCRIT 32.1 % (36.0-47.0); HEMOGLOBIN 10.5 g/dl (12.0-15.5); MEAN CORPUSCULAR HEMOGLOBIN 28.7 pg (27.0-33.0); MEAN CORPUSCULAR HGB CONC 32.7 g/dl (32.0-36.5); MEAN CORPUSCULAR VOLUME 87.7 fl (80.0-96.0); PLATELET COUNT, AUTOMATED 309 10^3/uL (150-450); RED BLOOD COUNT 3.66 10^6/uL (4.00-5.40); WHITE BLOOD COUNT 7.5 10^3/uL (4.0-10.0)
[2019-08-21 07:21] LABS: ALBUMIN 2.6 GM/DL (3.2-5.2); ALT/SGPT 34 U/L (12-78); BILIRUBIN,TOTAL 0.4 MG/DL (0.2-1.0); BLOOD UREA NITROGEN 10 MG/DL (7-18); CALCIUM LEVEL 8.2 MG/DL (8.5-10.1); CARBON DIOXIDE LEVEL 28 MEQ/L (21-32); CHLORIDE LEVEL 111 MEQ/L (98-107); CREATININE FOR GFR 0.81 MG/DL (0.55-1.30); GLOMERULAR FILTRATION RATE > 60.0 (>51); GLUCOSE, FASTING 84 MG/DL (70-100); POTASSIUM SERUM 3.9 MEQ/L (3.5-5.1); SODIUM LEVEL 142 MEQ/L (136-145); TOTAL PROTEIN 5.6 GM/DL (6.4-8.2)
[2019-08-21] MEDS ORDERED: MOXI400T11 PO (08:37)
[2019-08-21] MEDS ORDERED: BACITAB PO (08:38)
[2019-08-21] MEDS: ESTRADIOL 1 MG PO SCH (09:28)
[2019-08-21] MEDS: LACTOBACILLUS ACIDOPHILUS CAP (BACID) PO SCH (09:28)
--- NOTE | 2019-08-21 12:15 | DS.PDOC ---
Discharge Summary General Date of Admission Aug 18, 2019 at 16:29 Date of Discharge 06/21/2019 Discharge Summary PROCEDURES PERFORMED DURING STAY: None. ADMITTING DIAGNOSES: 1. . DISCHARGE DIAGNOSES: 1. . COMPLICATIONS/CHIEF COMPLAINT: Mandibular Abscess. HISTORY OF PRESENT ILLNESS: . HOSPITAL COURSE: . DISCHARGE MEDICATIONS: Please see below. ALLERGIES: Please see below. PHYSICAL EXAMINATION ON DISCHARGE: VITAL SIGNS: Please see below. GENERAL: HEENT: NECK: CARDIOVASCULAR EXAMINATION: RESPIRATORY EXAMINATION: ABDOMINAL EXAMINATION: EXTREMITIES: SKIN: NEUROLOGICAL EXAMINATION: PSYCHIATRIC EXAMINATION: LABORATORY DATA: Please see below. IMAGING: PROGNOSIS: ACTIVITY: As tolerated. DIET: DISCHARGE PLAN: DISPOSITION: Home, Self-Care. DISCHARGE INSTRUCTIONS: 1. . ITEMS TO FOLLOWUP ON ON OUTPATIENT: 1. . DISCHARGE CONDITION: Stable. TIME SPENT ON DISCHARGE: Greater than minutes. DISCHARGE DIAGNOSIS: Submandibular dental abscess SECONDARY DIAGNOSIS: 1 nicotine dependence PROCEDURES PERFORMED DURING STAY: Incision and drainage, extraction of tooth #19. CONSULTANTS: Oral surgery, ENT, infectious disease HOSPITAL COURSE: Patient is a 54 year female was recently admitted for dental infection with submandibular abscess. She was treated with antibiotics had operative removal of her tooth had a drain in place was eventually discharged home had recurrence of her symptoms represent emergency room was told postsurgical changes postdischarge we presented once again was found to have cultures and sensitivities resistant to the antibiotics she had been disposition on. Antibiotics were changed she was reevaluated by ENT as well as oral surgery and taken for a second tooth extraction as well as IND which she tolerated quite well. She was seen by infectious disease who recommended moxifloxacin as well as a probiotic. To complete a two-week course at this time her syndrome is improving she is doing well medically stable for discharge home. DISCHARGE MEDICATIONS: Please see below. ALLERGIES: Please see below. SUBJECTIVE: Patient reports improvement in her range of motion of the jaw her ability to tolerate food is better. She tells me her pain is under control and she is doing better than she has in several weeks. She denies headache trismus nausea vomiting fevers or chills. There is no pain in the anterior of her neck or floor of her mouth OBJECTIVE: PHYSICAL EXAMINATION: VITAL SIGNS: Please see below. GENERAL: Patient seen and examined in her hospital room this morning. No acute distress, alert and oriented. HEENT: Reduced left-sided submandibular swelling without any overlying erythema appreciated. Patient remains mildly tender to palpation. CARDIOVASCULAR: Regular rate and rhythm, normal S1 and S2 no murmurs. RESPIRATORY: Patient is not interested any difficulty with her airway. Patient is conversant and able to speak clearly. Clear to auscultation bilaterally EXTREMITIES: No lower extremity edema or calf tenderness bilaterally. No obvious bruising. NEUROLOGICAL: No obvious focal neurologic deficits. Patient is alert and oriented 3 PSYCHOLOGICAL: Appropriate LABORATORY DATA: Please see below IMAGING STUDIES: Dental x-ray (08/18/19): Left mandibular wisdom tooth appears to have been extracted. There is no bony destructive lesion appreciated. CT neck with contrast (08/18/19): Persistent left perimandibular abscess which i s essentially unchanged in size. Likely O odontogenic source as described. MICROBIOLOGY: Blood cultures (08/18/19): Obtained and remain pending ASSESSMENT AND PLAN: Patient is a 54-year-old white female with submandibular abscess PROBLEMS: #Submandibular cellulitis/abscess: Status post I&D as well as #19 tooth extracti on. She is doing much better at this time she is improving on this antibiotic she has been cleared by ENT she'll follow up with them within 1-2 days at their clinic I will also recommend she follow up with oral surgery and her PCP. She should complete 2 weeks of antibiotics as per infectious disease I provided her with Bacid as well. At this time her syndrome appears to be resolving and she is doing well #Nicotine dependence Cessation counseling provided 40 mg nicotine patch prescribed. DVT Prophylaxis: Teds and sequentials DISPOSITION: Home to self-care. DISCHARGE CONDITION: Improved and Stable. FOLLOW UP: ENT within 1-2 days, oral surgery within 1 week PCP within one week ACTIVITY: As prior to admission. DIET: Until ENT eval TIME SPENT ON DISCHARGE: 50 minutes This note was generated in part or whole with a voice recognition software. Voice recognition is usually quite accurate but there are sql architect errors that can very often do occur. I apologize for any typographical errors that were not detected and corrected. Vital Signs/I&Os Vital Signs Date Time Temp Pulse Resp B/P (MAP) Pulse Ox O2 Delivery O2 Flow Rate FiO2 08/21/19 06:00 98.4 62 18 133/73 (93) 96 Room Air I&O- Last 24 Hours up to 6 AM 08/21/19 05:59 Intake Total 3220 ml Output Total 0 ml Balance 3220 ml Laboratory Data Labs 24H Laboratory Tests 2 08/21/19 06:42: Nucleated Red Blood Cells % (auto) 0.0, Anion Gap 3L, Glomerular Filtration Rate > 60.0, Calcium Level 8.2L, Total Bilirubin 0.4, Aspartate Amino Transf (AST/SGOT) 14, Alanine Aminotransferase (ALT/SGPT) 34, Alkaline Phosphatase 121H, Total Protein 5.6L, Albumin 2.6L, Albumin/Globulin Ratio 0.87L CBC/BMP Laboratory Tests 08/21/19 06:42 Microbiology Microbiology 08/19/19 Gram Stain - Final, Resulted 08/19/19 Wound Culture, Resulted Pending 08/19/19 Anaerobic Culture, Resulted Pending 08/18/19 Blood Culture - Preliminary, Resulted No Growth after 48 hours. All Specime... 08/18/19 Blood Culture - Preliminary, Resulted No Growth after 48 hours. All Specime... Discharge Medications Scheduled Chlorhexidine Gluconate (Peridex) 473 Ml Mouthwash, 15 M MT BID, (Reported) Estradiol (Estradiol) 1 Mg Tablet, 1 MG PO DAILY, (Reported) L.acidoph/L.bulg/B.bif/S.therm (Bacid Caplet) 1 Each Tablet, 1 TAB PO DAILY Moxifloxacin HCl (Moxifloxacin HCl) 400 Mg Tablet, 400 MG PO DAILY Scheduled PRN Acetaminophen (Tylenol Extra Strength) 500 Mg Tablet, 500 MG PO QID PRN for PAIN, (Reported) Naproxen Sodium (Aleve) 220 Mg Tablet, 220 MG PO BID PRN for PAIN, (Reported) Allergies Coded Allergies: succinylcholine (Verified Allergy, Severe, family hx MH, 08/13/19) identical twin had MH reaction Penicillins (Verified Allergy, Mild, HIVES, 08/13/19) Sulfa (Sulfonamide Antibiotics) (Verified Allergy, Mild, HIVES, 08/13/19) amoxicillin (Verified Allergy, Mild, HIVES, 08/13/19) clavulanic acid (Verified Allergy, Mild, HIVES, 08/13/19) red dye (Verified Allergy, Unknown, hives, 08/19/19) hydrocodone (Verified Adverse Reaction, Unknown, VOMITING, 08/13/19) KACEY BOURGEOIS MD Aug 21, 2019 12:15
== END 2019-08-21 10:00 | disposition home or self-care (01) | DRG 159 ==
LOC: M ED 11:50 → M ED INP 16:29 → M MS5PR 18:30
PROVIDERS: ADMIT Internal Medicine; ATTEND Internal Medicine
PROC: 0CTX0Z0 Resection of Lower Tooth, Single, Open Approach (ICD-10-PCS; principal; 2019-08-19 12:45)
DX: K12.2 Cellulitis and abscess of mouth (principal); F17.210 Nicotine dependence, cigarettes, uncomplicated; Z88.0 Allergy status to penicillin; Z88.8 Allergy status to other drugs, medicaments and biological substances; Z88.2 Allergy status to sulfonamides; Z88.5 Allergy status to narcotic agent; Z79.899 Other long term (current) drug therapy

== ENCOUNTER → 2020-08-10 | Outpatient (CLI) | payer OTHER ==
[~2020-08-10] MED LIST changes: +BACITAB PO; +CLIN150C14 PO; +MOXI400T11 PO; +PERI0.126 MT
[2020-08-10 10:28] LABS: BASO # 0.1 10^3/uL (0.0-0.2); BASO % 0.4 % (0.0-1.0); EOS # 0.1 10^3/uL (0.0-0.5); EOS % 0.9 % (0.0-3.0); HEMATOCRIT 43.1 % (36.0-47.0); LYMPH # 0.9 10^3/uL (1.5-5.0); LYMPH % 6.6 % (24.0-44.0); MEAN CORPUSCULAR HEMOGLOBIN 28.6 pg (27.0-33.0); MEAN CORPUSCULAR HGB CONC 32.5 g/dl (32.0-36.5); MEAN CORPUSCULAR VOLUME 88.1 fl (80.0-96.0); MONO # 1.1 10^3/uL (0.0-0.8); MONO % 7.5 % (0.0-5.0); NEUTROPHILS # 11.9 10^3/uL (1.5-8.5); NEUTROPHILS % 84.1 % (36.0-66.0); PLATELET COUNT, AUTOMATED 272 10^3/uL (150-450); RED BLOOD COUNT 4.89 10^6/uL (4.00-5.40); WHITE BLOOD COUNT 14.2 10^3/uL (4.0-10.0)
[2020-08-10 11:00] LABS: BLOOD UREA NITROGEN 14 MG/DL (7-18); CREATININE FOR GFR 0.71 MG/DL (0.55-1.30); GLUCOSE, FASTING 74 MG/DL (70-100)
[2020-08-10 11:01] LABS: ALBUMIN 3.7 GM/DL (3.2-5.2); ALT/SGPT 19 U/L (12-78); BILIRUBIN,TOTAL 0.2 MG/DL (0.2-1.0); CARBON DIOXIDE LEVEL 28 MEQ/L (21-32); CHLORIDE LEVEL 108 MEQ/L (98-107); CHOLESTEROL LEVEL 197 MG/DL (<200); CHOLESTEROL RISK RATIO 2.814 (<5); FREE T4 1.03 NG/DL (0.76-1.46); GLOMERULAR FILTRATION RATE > 60.0 (>51); HDL CHOLESTEROL 70 MG/DL (>40); LDL CHOLESTEROL 102 MG/DL (<100); NON-HDL-C 127 MG/DL; POTASSIUM SERUM 4.4 MEQ/L (3.5-5.1); RHEUMATOID FACTOR QUANT < 10.0 IU/ML (<15.0); SODIUM LEVEL 139 MEQ/L (136-145); THYROID STIMULATING HORMONE 0.853 uIU/ML (0.358-3.740); TOTAL PROTEIN 6.6 GM/DL (6.4-8.2); TRIGLYCERIDES LEVEL 124 MG/DL (<150)
[2020-08-10 11:47] LABS: ERYTHROCYTE SEDIMENTATION RATE 2 mm/hr (0-30)
== END ==
LOC: M WUC 08:39
PROVIDERS: ATTEND Physician Assistant
DX: M13.849 Other specified arthritis, unspecified hand (principal); Z13.220 Encounter for screening for lipoid disorders; Z13.29 Encounter for screening for other suspected endocrine disorder

== ENCOUNTER → 2020-08-13 | Outpatient (CLI) | payer OTHER ==
[2020-08-13 16:31] LABS: BASO # 0.1 10^3/uL (0.0-0.2); BASO % 0.7 % (0.0-1.0); EOS # 0.1 10^3/uL (0.0-0.5); EOS % 1.6 % (0.0-3.0); HEMATOCRIT 40.7 % (36.0-47.0); HEMOGLOBIN 13.2 g/dl (12.0-15.5); LYMPH # 2.3 10^3/uL (1.5-5.0); LYMPH % 32.4 % (24.0-44.0); MEAN CORPUSCULAR HEMOGLOBIN 28.2 pg (27.0-33.0); MEAN CORPUSCULAR HGB CONC 32.4 g/dl (32.0-36.5); MONO # 0.5 10^3/uL (0.0-0.8); MONO % 7.2 % (0.0-5.0); NEUTROPHILS # 4.1 10^3/uL (1.5-8.5); NEUTROPHILS % 57.8 % (36.0-66.0); PLATELET COUNT, AUTOMATED 284 10^3/uL (150-450); RED BLOOD COUNT 4.68 10^6/uL (4.00-5.40); WHITE BLOOD COUNT 7.1 10^3/uL (4.0-10.0)
[2020-08-13 17:00] LABS: MONO REFLEX EBV VCA IgM NEGATIVE (NEGATIVE)
== END ==
LOC: M WUC 12:34
PROVIDERS: ATTEND Physician Assistant
DX: D72.829 Elevated white blood cell count, unspecified (principal)

== ENCOUNTER → 2021-04-02 | Outpatient (CLI) | payer OTHER ==
[~2021-04-02] MED LIST changes: -CLIN150C14 PO; +CLIN150C15 PO; +NAPR-849 PO; -NAPR250T4 PO
--- NOTE | 2021-04-02 10:55 | REP ---
INDICATION: COUGH, SOB, RIGHT SIDED WHEEZES, HX OF COVID IN NOVEMBER COMPARISON: 04/24/2017 TECHNIQUE: PA and lateral. FINDINGS: The mediastinum and cardiac silhouette are normal. The lung thompson are clear and without acute consolidation, effusion, or pneumothorax. The skeletal structures are intact and normal. IMPRESSION: No acute cardiopulmonary process. <Electronically signed by Mason Cheung > 04/02/21 [id number]
== END ==
LOC: M WUC 10:19
PROVIDERS: ATTEND Physician Assistant
DX: Z86.16 Personal history of COVID-19 (principal)

== ENCOUNTER → 2021-04-04 | Outpatient (CLI) | payer OTHER ==
[~2021-04-04] MED LIST changes: +ISOVUE-370 76% 100ML VIAL As Ordered ONE
--- NOTE | 2021-04-04 13:48 | REP ---
INDICATION: Personal history of COVID-19 COMPARISON: None. TECHNIQUE: Axial contrast enhanced images from the thoracic inlet to the upper abdomen using pulmonary embolus technique with multiplanar re-formations. 75 ml Isovue 370 intravenous contrast material administered without complication. This CT examination was performed using the following dose reduction techniques: Automated exposure control, adjustment of mA and/or kv according to the patient's size, and use of iterative reconstruction technique. FINDINGS: Satisfactory enhancement of the pulmonary vasculature is achieved and no filling defects are identified to suggest pulmonary embolus. Further evaluation of the mediastinum demonstrates normal thoracic aorta, heart and pericardium. The bilateral lung thompson are well aerated and clear without consolidation pleural effusion or pneumothorax. Tracheobronchial tree is patent. No nodule or mass lesion is identified. No adenopathy noted. Surrounding musculoskeletal structures intact IMPRESSION: No evidence for pulmonary embolus. No acute mediastinal or pleural parenchymal process. <Electronically signed by Mason Cheung > 04/04/21 1142
== END ==
LOC: M RAD 13:13
PROVIDERS: ATTEND Physician Assistant
DX: R06.00 Dyspnea, unspecified (principal); Z86.16 Personal history of COVID-19

== ENCOUNTER → 2021-11-20 | Outpatient (REF) | payer OTHER ==
[~2021-11-20] MED LIST changes: -CLIN150C15 PO; +CLIN150C17 PO; -ISOVUE-370 76% 100ML VIAL As Ordered ONE
== END ==
LOC: M LAB REF 17:06
PROVIDERS: ATTEND Family Medicine
DX: J20.9 Acute bronchitis, unspecified (principal)

== ENCOUNTER → 2023-02-27 | Outpatient (CLI) | payer OTHER ==
[~2023-02-27] MED LIST changes: +BENZ200C70 PO; +MUCI60TA7 PO; +PRED10PA PO
[2023-02-27 09:44] LABS: BASO # 0.1 10^3/uL (0.0-0.2); EOS # 0.1 10^3/uL (0.0-0.5); EOS % 1.8 % (0.0-3.0); HEMATOCRIT 43.8 % (36.0-47.0); HEMOGLOBIN 14.3 g/dl (12.0-15.5); LYMPH # 1.6 10^3/uL (1.5-5.0); LYMPH % 27.2 % (24.0-44.0); MEAN CORPUSCULAR HEMOGLOBIN 28.7 pg (27.0-33.0); MEAN CORPUSCULAR HGB CONC 32.6 g/dl (32.0-36.5); MEAN CORPUSCULAR VOLUME 87.8 fl (80.0-96.0); MONO # 0.5 10^3/uL (0.0-0.8); NEUTROPHILS # 3.7 10^3/uL (1.5-8.5); NEUTROPHILS % 60.7 % (36.0-66.0); PLATELET COUNT, AUTOMATED 270 10^3/uL (150-450); RED BLOOD COUNT 4.99 10^6/uL (4.00-5.40)
[2023-02-27 09:58] LABS: HEMOGLOBIN A1c 5.2 % (4.0-6.0)
[2023-02-27 10:18] LABS: FREE T4 1.18 NG/DL (0.89-1.76); THYROID STIMULATING HORMONE 0.881 uIU/ML (0.55-4.78)
[2023-02-27 10:19] LABS: ESTRADIOL 52.9 PG/ML
[2023-02-27 10:20] LABS: ALBUMIN 3.9 G/DL (3.2-5.2); ALKALINE PHOSPHATASE 58 U/L (46-116); ALT/SGPT 15 U/L (7.0-40); AST/SGOT 10 U/L (<34); BILIRUBIN,TOTAL 0.3 MG/DL (0.3-1.2); BLOOD UREA NITROGEN 16 MG/DL (9-23); CALCIUM LEVEL 9.8 MG/DL (8.3-10.6); CARBON DIOXIDE LEVEL 30 MMOL/L (20-31); CHLORIDE LEVEL 106 MMOL/L (98-107); CHOLESTEROL LEVEL 199 MG/DL (<200); CHOLESTEROL RISK RATIO 2.62 (<5); CREATININE FOR GFR 0.82 MG/DL (0.55-1.30); GLOMERULAR FILTRATION RATE > 60.0 (>45); GLUCOSE, FASTING 83 MG/DL (74-106); HDL CHOLESTEROL 75.9 MG/DL (>40); LDL CHOLESTEROL 109.1 MG/DL (<100); NON-HDL-C 123.1 MG/DL; POTASSIUM SERUM 4.8 MMOL/L (3.5-5.1); SODIUM LEVEL 138 MMOL/L (136-145); TOTAL PROTEIN 6.7 G/DL (5.7-8.2); TRIGLYCERIDES LEVEL 70 MG/DL (<150)
[2023-02-27 10:22] LABS: FOLATE > 24.0 NG/ML (>5.4)
[2023-02-27 10:26] LABS: VITAMIN B12 LEVEL > 2000 PG/ML (211-911)
== END ==
LOC: M LAB 07:17
PROVIDERS: ATTEND Physician Assistant
DX: E55.9 Vitamin D deficiency, unspecified (principal); Z13.220 Encounter for screening for lipoid disorders; Z13.29 Encounter for screening for other suspected endocrine disorder

== ENCOUNTER → 2023-04-06 | Outpatient (CLI) | payer OTHER | LOC: M WUC 15:17 | PROVIDERS: ATTEND Family Medicine | DX: M54.50 Low back pain, unspecified (principal); N23 Unspecified renal colic; M85.88 Other specified disorders of bone density and structure, other site; M47.817 Spondylosis without myelopathy or radiculopathy, lumbosacral region ==

== ENCOUNTER → 2023-04-07 | Outpatient (CLI) | payer OTHER | LOC: M RAD 16:00 | PROVIDERS: ATTEND Family Medicine | DX: N23 Unspecified renal colic (principal); R31.9 Hematuria, unspecified ==

== ENCOUNTER → 2024-02-15 | Outpatient (CLI) | payer OTHER | LOC: M RAD 07:34 | PROVIDERS: ATTEND Physician Assistant | DX: Z12.2 Encounter for screening for malignant neoplasm of respiratory organs (principal); F17.210 Nicotine dependence, cigarettes, uncomplicated; R91.8 Other nonspecific abnormal finding of lung field ==

== ENCOUNTER 2024-04-14 07:58 | Day surgery (SDC) | payer OTHER ==
[~2024-04-14] VITALS: Ht 154.9 cm; Wt 50.8 kg
[2024-04-14] MEDS ORDERED: LIDOCAINE 2% 100MG/5ML SDV (FOR ANES.) As Ordered ONE (08:11)
[2024-04-14] MEDS ORDERED: propofoL 200 MG/20 ML VIAL As Ordered ONE (08:11)
[2024-04-14] MEDS: NS 1,000 ML IV ONE (08:18)
[2024-04-14] MEDS ORDERED: GLYCOPYRROLATE INJ 0.2 MG/ML 2 ML VIAL As Ordered ONE (09:01)
[2024-04-14 09:08] VITALS: TEMP 98.1
[2024-04-14 09:25] VITALS: BP 136/69; O2SAT 100
== END 2024-04-14 09:39 | disposition home or self-care (01) ==
LOC: M OPP 07:58
PROVIDERS: ATTEND Surgery
DX: Z12.11 Encounter for screening for malignant neoplasm of colon (principal); Z80.0 Family history of malignant neoplasm of digestive organs; K64.8 Other hemorrhoids; K64.4 Residual hemorrhoidal skin tags; F17.200 Nicotine dependence, unspecified, uncomplicated; Z91.018 Allergy to other foods; Z79.1 Long term (current) use of non-steroidal anti-inflammatories (NSAID); Z79.51 Long term (current) use of inhaled steroids; Z79.818 Long term (current) use of other agents affecting estrogen receptors and estrogen levels; Z88.1 Allergy status to other antibiotic agents; Z88.2 Allergy status to sulfonamides; Z88.4 Allergy status to anesthetic agent; Z88.5 Allergy status to narcotic agent; Z91.048 Other nonmedicinal substance allergy status

== ENCOUNTER → 2024-09-22 | Outpatient (CLI) | payer OTHER | LOC: M PLARAD 14:08 | PROVIDERS: ATTEND Physician Assistant | DX: R42 Dizziness and giddiness (principal); I67.1 Cerebral aneurysm, nonruptured; I65.23 Occlusion and stenosis of bilateral carotid arteries; I67.2 Cerebral atherosclerosis ==

== ENCOUNTER → 2025-08-08 | Outpatient (REF) | payer OTHER | LOC: M LAB REF 16:50 | PROVIDERS: ATTEND Family Medicine | DX: N76.0 Acute vaginitis (principal); R30.0 Dysuria ==

== ENCOUNTER → 2025-08-22 | Outpatient (REF) | payer OTHER | LOC: M LAB REF 16:51 | PROVIDERS: ATTEND Family Medicine | DX: N76.0 Acute vaginitis (principal) ==